=== PATIENT | female | born 1965 | race Caucasian/White ===

== ENCOUNTER → 2017-10-04 | Day surgery (SDC) | payer OTHER ==
[2017-10-02 13:26] LABS: BASOPHILS # (AUTO) 0.1 (0.0-0.1); EOSINOPHILS % 0.4 % (0.0-6.0); HEMATOCRIT 44.1 % (34.2-44.1); HEMOGLOBIN 14.8 g/dL (12.0-16.0); LYMPHOCYTES # (AUTO) 1.4 (1.0-3.2); LYMPHOCYTES % 26.7 % (18.0-39.1); MEAN CORPUSCULAR HEMOGLOBIN 31.2 pg (28-32); MEAN CORPUSCULAR HGB CONC 33.6 g/dL (31-35); MEAN CORPUSCULAR VOLUME 92.8 fL (81-99); MONOCYTES # (AUTO) 0.6 (0.2-0.8); MONOCYTES % 11.8 % (4.4-11.3); NEUTROPHILS # (AUTO) 3.1 (2.1-6.9); NEUTROPHILS % 59.9 % (38.7-80.0); PLATELET COUNT 241 x10e3/uL (140-360); RED BLOOD COUNT 4.75 x10e6/uL (3.6-5.1); RED CELL DISTRIBUTION WIDTH 13.8 % (11.7-14.4)
[~2017-10-04] MED LIST: ALENDRONATE SOD70 MG PO; AMITRIPTYLINE H25 MG PO; BUSPIRONE HCL5 MG PO; DOXAZOSIN MESYLA2 MG PO; FENTANYL CITRATE/PF 100MCG/2 ML INJ ONE; GABAPENTIN400 MG PO; HYDROCODONE-AP1 EAC1 PO; IMIPRAMINE HCL50 M1 PO; LIDOCAINE HCL 2% LOCAL INJ 5 ML SDV VIAL INJ ONE; MAGNESIUM OXID400 MG PO; MELOXICAM7.5 MG PO; MIDAZOLAM HCL 2 MG/2 ML VIAL ONE; PHENYLEPHRINE HCL 1% 10 MG/ML VIAL ONE; PROPOFOL IV EMULSION 10 MG/ML 20 ML VIAL ONE; TIZANIDINE HCL4 M1 PO; TOPIRAMATE100 MG PO; TRAZODONE HCL50 MG PO; Z DILTIAZEM PO; Z.0.ALPRAZOLAM1 MG PO; Z.0.CARISOPRODOL350 PO; Z.0.DIGOXIN250 MCG PO; Z.0.FOLIC ACID1 MG PO; Z.0.FUROSEMIDE40 MG PO; Z.0.HYDROXYCHLOROQ20 PO; Z.0.KLOR-CON20 MEQ PO; Z.0.LEVOTHYROXINE125 PO; Z.0.METOPROLOL TART2 PO; Z.0.NEXIUM40 MG PO; [UNRECOGNIZED DRUG - OTHER] PO; [UNRECOGNIZED DRUG - OTHER] PO
[2017-10-04 08:07] LABS: INR 0.87; PARTIAL THROMBOPLASTIN TIME 28.5 seconds (23.8-35.5); PROTHROMBIN TIME 12.3 seconds (11.9-14.5)
== END | disposition home or self-care (01) ==
LOC: OR 07:24
PROVIDERS: ATTEND Internal Medicine Gastroenterology
DX: Z12.11 Encounter for screening for malignant neoplasm of colon (principal); K57.30 Diverticulosis of large intestine without perforation or abscess without bleeding; K64.4 Residual hemorrhoidal skin tags; Z98.0 Intestinal bypass and anastomosis status; J44.9 Chronic obstructive pulmonary disease, unspecified; I48.91 Unspecified atrial fibrillation; I48.92 Unspecified atrial flutter; I44.30 Unspecified atrioventricular block; E03.9 Hypothyroidism, unspecified; M32.9 Systemic lupus erythematosus, unspecified; K21.9 Gastro-esophageal reflux disease without esophagitis; B19.10 Unspecified viral hepatitis B without hepatic coma; I50.9 Heart failure, unspecified; F31.9 Bipolar disorder, unspecified; F41.9 Anxiety disorder, unspecified; F17.210 Nicotine dependence, cigarettes, uncomplicated; Z01.810 Encounter for preprocedural cardiovascular examination; Z01.812 Encounter for preprocedural laboratory examination; Z79.01 Long term (current) use of anticoagulants; Z87.01 Personal history of pneumonia (recurrent)
CPT/HCPCS: 36415 ×2; 45378; 85025; 85610; 85730; 93005; J2001; J2250; J2370

== ENCOUNTER 2018-09-19 13:20 | Emergency (ER) | payer OTHER ==
[~2018-09-19] VITALS: Ht 167.6 cm; Wt 45.4 kg
[~2018-09-19 13:20] MED LIST changes: -FENTANYL CITRATE/PF 100MCG/2 ML INJ ONE; -LIDOCAINE HCL 2% LOCAL INJ 5 ML SDV VIAL INJ ONE; -MIDAZOLAM HCL 2 MG/2 ML VIAL ONE; -PHENYLEPHRINE HCL 1% 10 MG/ML VIAL ONE; -PROPOFOL IV EMULSION 10 MG/ML 20 ML VIAL ONE
--- OUTSIDE RECORDS SUMMARY | 2018-09-19 13:24 | XMS REPORT ---
Author Author Naty Cruz Organization [employer] Address Unknown Phone Unavailable Care Team Providers Care Janitorial Services Supervisor Name Role Phone Naty Cruz CP Unavailable Allergies No Known Allergies Problems No Known Problems Medications Medication Code System Code Instructions Start Date End Date Status Dosage Hydroxychloroquine Sulfate [facility] 75599453846 200 MG Orally Twice a day Active 1 tablet with food or milk Results No Known Results Summary Purpose [employer]Works Submission
--- OUTSIDE RECORDS SUMMARY | 2018-09-19 13:24 | XMS REPORT ---
Author Author Juan Shahid Organization [employer] Address Unknown Phone Unavailable Care Team Providers Care Account Receivable Clerk Name Role Phone Juan Shahid CP Unavailable Allergies No Known Allergies Problems No Known Problems Medications Medication Code System Code Instructions Start Date End Date Status Dosage Alendronate Sodium [facility] 67532319502 70 MG Orally Once a day May 25, 2017 Active TAKE 1 TABLET EVERY WEEK Results No Known Results Summary Purpose [employer] Submission
--- OUTSIDE RECORDS SUMMARY | 2018-09-19 13:24 | XMS REPORT ---
Author Author Juan Shahid [facility] e[employer] Address Unknown Phone Unavailable Care Team Providers Care Cotton Opener Name Role Phone Juan Shahid CP Unavailable Encounters Encounter Location Date [place] and [place] clarification Juan Shahid MD Jun 25, 2014 [place]-- [place] Juan Shahid MD Jul 01, 2014 Appointment Time Juan Shahid MD Jul 23, 2014 DEXA Juan Shahid MD Jul 23, 2014 crit labs Juan Shahid MD January 15, 2014 6m f/u Juan Shahid MD January 14, 2014 Follow up Juan Shahid MD Jun 18, 2014 RX request-- [place] Juan Shahid MD Jul 30, 2014 Problems Problem Type Condition ICD-9 Code Onset Dates Condition Status Problem Lupus 710.0 Active Social History Social History Element Qualifiers Date Reported Alcohol Screening: . Points: 0, Interpretation: Negative Jul 28, 2014 Tobacco Use: . Are you a:: current smoker , How often do you smoke cigarettes?: every day, How many cigarettes a day do you smoke?: 31 or more Jul 28, 2014 Marital Status: . Jul 28, 2014 Caffeine: yes. frequency: 3 cups Jul 28, 2014 Exercise: no. Jul 28, 2014 Alcohol: no. Jul 28, 2014 Occupation: unemployed. Jul 28, 2014 Summary Purpose [employer]Works Submission
--- OUTSIDE RECORDS SUMMARY | 2018-09-19 13:24 | XMS REPORT ---
Author Author Juan Shahid Organization [employer] Address Unknown Phone Unavailable Care Team Providers Care Household Appliances Service Technician Name Role Phone Juan Shahid CP Unavailable Allergies No Known Allergies Problems No Known Problems Medications Medication Code System Code Instructions Start Date End Date Status Dosage Prednisone Taper [facility] 3322-3540-58 5mg PO q am with food December 08, 2016 December 24, 2016 Active 3 tablets for 5 days, 2 tablets for 5 days and then 1 tablet for 5 days Results No Known Results Summary Purpose [employer]Works Submission
--- OUTSIDE RECORDS SUMMARY | 2018-09-19 13:24 | XMS REPORT ---
Author Author Juan Shahid Organization [employer] Address Unknown Phone Unavailable Care Team Providers Care It Security Consultant Name Role Phone Juan Shahid CP Unavailable Allergies No Known Allergies Problems No Known Problems Medications No Known Medications Results No Known Results Summary Purpose [employer] Submission
--- OUTSIDE RECORDS SUMMARY | 2018-09-19 13:24 | XMS REPORT ---
Author Author Juan Shahid [facility] e[employer] Address Unknown Phone Unavailable Care Team Providers Care Business Intern Name Role Phone Juan Shahid Unavailable Encounters Encounter Location Date crit labs Juan Shahid MD January 15, 2014 Problems Problem Type Condition ICD-9 Code Onset Dates Condition Status Problem Lupus 710.0 Active Social History Social History Element Qualifiers Date Reported Alcohol Screening: . Points: 0, Interpretation: Negative January 14, 2014 Tobacco Use: . Are you a:: current smoker , How often do you smoke cigarettes?: every day, How many cigarettes a day do you smoke?: 31 or more January 14, 2014 Marital Status: . January 14, 2014 Caffeine: yes. frequency: 3 cups January 14, 2014 Exercise: no. January 14, 2014 Alcohol: no. January 14, 2014 Occupation: unemployed. January 14, 2014 Summary Purpose eClinicalWorks Submission
--- OUTSIDE RECORDS SUMMARY | 2018-09-19 13:24 | XMS REPORT ---
Author Author Juan Shahid [employer] Address Unknown Phone Unavailable Care Team Providers Care Teacher Assistant Name Role Phone Juan Shahid CP Unavailable Encounters Encounter Location Date [place] and Plaquenil clarification Juan Shahid MD Jun 25, 2014 [place]-- [place] Shahid MD Jul 01, 2014 Appointment Time Juan Shahid MD Jul 23, 2014 DEXA Juan Shahid MD Jul 23, 2014 crit labs Juan Shahid MD January 15, 2014 6m f/u Juan Shahid MD January 14, 2014 Follow up Juan Shahid MD Jun 18, 2014 f/u Juan Shahid MD Jul 28, 2014 RX request-- [place] Juan Shahid MD Jul 30, 2014 [place] Juan Shahid MD Aug 03, 2014 Unknown Juan Shahid MD April 01, 2015 3M F/U Juan Shahid MD March 26, 2015 DEXA Juan Shahid MD March 20, 2015 labs Juan Shahid MD March 27, 2015 3M F/U Juan Shahid MD Oct 28, 2014 NoShow Juan Shahid MD January 28, 2015 RX Request-- [place] Juan Shahid MD Oct 29, 2014 Skelaxin to much Juan Shahid MD Oct 29, 2014 Unknown Juan Shahid MD April 07, 2015 Problems Problem Type Condition ICD-9 Code Onset Dates Condition Status Problem Lupus 710.0 Active Problem Osteoporosis, postmenopausal 733.01 Active Medications Medication Code System Code Instructions Start Date End Date Status Dosage Ciprofloxacin HCl [facility] [address]-81 500 MG Orally Twice a day April 07, 2015 April 07, 2015 Inactive 1 tablet [facility] [address]-37 800-160 MG Orally Once a day April 01, 2015 Apr 11, 2015 Inactive 1 tablet Keflex [facility] [address]-43 500 MG Orally Twice a day April 07, 2015 Apr 17, 2015 Active 1 capsule Social History Social History Element Qualifiers Date Reported Alcohol Screening: . Points: 0, Interpretation: Negative March 26, 2015 Tobacco Use: . Are you a:: current smoker , How often do you smoke cigarettes?: every day, How many cigarettes a day do you smoke?: 31 or more March 26, 2015 Marital Status: . March 26, 2015 Caffeine: yes. frequency: 3 cups March 26, 2015 Exercise: no. March 26, 2015 Alcohol: no. March 26, 2015 Occupation: unemployed. March 26, 2015 Summary Purpose eClinicalWorks Submission
--- OUTSIDE RECORDS SUMMARY | 2018-09-19 13:24 | XMS REPORT ---
Author Author Elvi Kimball [facility] [place] eClinical[employer] Address Unknown Phone Unavailable Care Team Providers Care Entry Level Account Executive Name Role Phone Elvi Kimball CP Unavailable Allergies, Adverse Reactions, Alerts Substance Reaction Event Type Plaquenil Not helping the pt Drug Allergy Imuran Not helping the pt Drug Allergy [facility] Itching for at least a week Non Drug Allergy Encounters Encounter Location Date crit labs Juan Shahid MD January 15, 2014 6m f/u Juan Shahid MD January 14, 2014 Problems Problem Type Condition ICD-9 Code Onset Dates Condition Status Assessment Lupus 710.0 Active Problem Lupus 710.0 Active Medications Medication Code System Code Instructions Start Date End Date Status Dosage Digoxin [facility] [address]-59 250 mcg Injection qd Active 1 tablet Soma [facility] [address]-96 350 mg Orally qd Active 2 tablets Promethazine HCl [facility] [address]-52 25 MG Orally prn Active Unknown Hydrocodone-Acetaminophen [facility] [address]-26 10-325 MG Orally three times a day Active 1 tablet as needed for pain Vitamin B12 [facility] [address]66-[address]84 Orally Active Unknown Calcium 600 [facility] [address]204 600 MG Orally once a day Active 1 tablet Xopenex [facility] [address]-68 0.63 MG/3ML Inhalation twice a day Active 3 ml Cartia XT [facility] [address]-02 300 MG Orally Once a day Active 1 capsule Warfarin Sodium [facility] [address]-93 5MG Orally Once a day Active 1 tablet Plaquenil [facility] [address]-66 200 MG Orally qam qpm Active 1 tablet with food or milk Potassium [facility] [address]-94 200 mcg Orally bid Active 1 tablet Clonazepam [facility] [address]-19 0.5 MG Orally three times a day Active 1 tablet at bedtime Hair/Skin/Nails [facility] 46821-64817 Orally Oct 19, 2013 Active Unknown Haloperidol [facility] [address]-29 1 MG Orally qam qpm Active 1 tablet BuPROPion HCl (SR) [facility] [address]-71 150 MG Orally Twice a day Active 1 tablet Nexium [facility] [address]-02 40 MG Orally qd Active 1 tablet Levothyroxine Sodium [facility] [address]-88 125 MCG Orally Once a day Active 1 tablet every morning on an empty stomach Oxybutynin Chloride [facility] [address]-49 5 MG Orally twice a day Active Unknown Trazodone & Diet Manage Prod Unknown 0 100 MG Orally once a day Active 1 tablet Alprazolam [facility] [address]-39 1 mg Orally tid Active 1 tablet Furosemide [facility] [address]-13 40 mg Orally qd Active 1 tablet Spiriva HandiHaler [facility] [address]-46 18 MCG Inhalation twice a day Active 1 capsule Social History Social History [...] 14, 2014 Occupation: unemployed. January 14, 2014 Vital Signs Date/Time: January 14, 2014 Blood Pressure Systolic 120 mm Hg Temperature 95.2 F Cardiac Monitoring Heart Rate 68 /min Blood Pressure Diastolic 70 mm Hg Immunizations Vaccine Administration Date Toradol January 14, 2014 Depomedrol January 14, 2014 Summary Purpose eClinicalWorks Submission
--- OUTSIDE RECORDS SUMMARY | 2018-09-19 13:24 | XMS REPORT ---
Author Author Juan Shahid [facility] eClinicalWorks Address Unknown Phone Unavailable Care Team Providers Care Construction Producer Name Role Phone Juan Shahid CP Unavailable Encounters Encounter Location Date [place] and Plaquenil clarification Juan Shahid MD Jun 25, 2014 [place]-- [place] Juan Shahid MD Jul 01, 2014 Appointment [...]
--- OUTSIDE RECORDS SUMMARY | 2018-09-19 13:24 | XMS REPORT | Continuity of Care Document ---
Author Author [facility] Interface Address Unknown Phone Unavailable Problems Problem Status Onset Date Classification Date Reported Comments Source G89.4 - CHRONIC PAIN SYNDROME Active 08/14/2015 OPID [place] Lupus Active Problem 07/02/2016 Galileo Zuñigaer Osteoporosis, postmenopausal Active Problem 07/02/2016 Galileo Shahid Long-term use of other medications - High Risk Active Diagnosis 04/08/2015 Galileo Shahid Unspecified drug dependence Active Problem 06/08/2017 Galileo Shahid Lumbosacral spondylosis without myelopathy Active Problem 06/08/2017 Galileo Shahid Headache Active Problem 06/08/2017 Galileo Shahid Lumbar radiculopathy Active Problem 08/11/2017 Galileo Zuñigaer Chronic pain syndrome Active Problem 06/08/2017 Galileo Zuñigaer Postlaminectomy syndrome, lumbar region Active Problem 06/08/2017 Galileo Zuñigaer Spasm of muscle Active Problem 06/08/2017 Galileo Zuñigaer Chronic pain syndrome Active Diagnosis 07/26/2017 Galileo Shahid Postlaminectomy syndrome, not elsewhere classified Active Diagnosis 07/26/2017 Galileo Zuñigaer Spondylosis without myelopathy or radiculopathy, lumbosacral region Active Diagnosis 07/26/2017 Galileo Shahid Encounter for long-term use of other medications Active Diagnosis 07/26/2017 Galileo Shahid Muscle spasm Active Diagnosis 07/26/2017 Galileo Shahid Medications Medication Details Route Status Patient Instructions Ordering Provider Order Date Source Alendronate Sodium TAKE 1 TABLET EVERY WEEK Orally Active 70 MG Orally Once a day [facility] 09/06/2017 Galileo Shahid Alendronate Sodium TAKE 1 TABLET EVERY WEEK Orally Active 70 MG Orally Once a day [facility] 05/25/2017 Galileo Shahid Tizanidine HCl take 1 tablet by mouth every 8 hours as needed Orally Active 4 MG Orally TID [facility] 05/23/2017 Galileo Shahid Meloxicam 1 tablet Orally Active 15 MG Orally Once a day [facility] 05/23/2017 Galileo Shahid Meloxicam 1 tablet Orally Active 15 MG Orally Once a day [facility] 05/18/2017 Galileo Shahid Clonazepam 1 tablet on the tongue and allow to dissolve Orally Active 0.5 MG Orally once a day [facility] 04/28/2017 Galileo Shahid PrednisoLONE take 3 , 2, 1 NA Active 5 mg 5 days, 3 days [facility] 01/23/2017 Galileo Shahid Lini Mist Analgesic as directed Externally Active Externally [facility] 01/23/2017 Galileo Shahid Oxybutynin Chloride 1 tablet Orally Active 5 MG Orally Twice a day [facility] 01/23/2017 Galileo Shahid Alprazolam 1 tablet Orally Active 1 MG Orally Twice a day [facility] 01/23/2017 Galileo Shahid Meloxicam 1 tablet Orally Active 15 MG Orally Once a day [facility] 12/27/2016 Galileo Shahid Prednisone Taper 3 tablets for 5 days, 2 tablets for 5 days and then 1 tablet for 5 days PO Active 5mg PO q am with food [facility] 12/08/2016 Galileo Shahid Alendronate Sodium 1 tablet Orally Active 70 MG Orally Once a day [facility] 06/28/2016 Galileo Shahid Prednisone Taper 3 tablets for 5 days, 2 tablets for 5 days and then 1 tablet for 5 days PO Active 5mg PO q am with food [facility] 01/26/2016 Galileo Shahid Plaquenil 1 tablet with food or milk Orally Active 200 MG Orally Twice a day [facility] 07/26/2015 Galileo Shahid Ciprofloxacin HCl 1 tablet Orally Inactive 500 MG Orally Twice a day [facility] 04/07/2015 Galileo Shahid Keflex 1 capsule Orally Active 500 MG Orally Twice a day [facility] 04/07/2015 Galileo Shahid Bactrim DS 1 tablet Orally No Longer Active 800-160 MG Orally Once a day [facility] 04/01/2015 Galileo Shahid Alendronate Sodium 1 tablet Orally Active 70 MG Orally every week [facility] 03/26/2015 Galileo Shahid Soma 2 tablets Orally Active 350 MG Orally qd [facility] 10/30/2014 Galileo Shahid Skelaxin 1 tablet Orally Active 800 MG Orally Three times a day [facility] 09/29/2014 Galileo Shahid Hydrocodone-Acetaminophen 1 tablet as needed Orally Active 10- 325 MG Orally every 6 hrs [facility] 08/04/2014 Galileo Shahid Hydrocodone-Acetaminophen 1 tablet as needed for pain Orally Active 10-325 MG Orally every 6 hours [facility] 07/31/2014 Galileo Shahid Hair/Skin/Nails Unknown Orally Active Orally [facility] 10/19/2013 Galileo Shahid Hydroxychloroquine Sulfate 1 tablet with food or milk Orally Active 200 MG Orally Twice a day Nancy Galileo Shahid Digoxin 1 tablet Injection Active 250 mcg Injection qd Galileo Shahid Soma 2 tablets Orally Active 350 MG Orally qd Mathieu Shahid Promethazine HCl as directed Orally Active 25 MG Orally [facility] Galileo Shahid Hydrocodone-Acetaminophen 1 tablet as needed for pain Orally Active 10-325 MG Orally three times a day Nathan Shahid Vitamin B12 Unknown Orally Active Orally Nancy Galileo Shahid Calcium 600 1 tablet Orally Active 600 MG Orally once a day Mathieu Shahid Xopenex 3 ml Inhalation Active 0.63 MG/3ML Inhalation twice a day Nancy Galileo Shahid Cartia XT 1 capsule Orally Active 300 MG Orally Once a day [facility] Galileo Shahid Warfarin Sodium 1 tablet Orally Active 5MG Orally Once a day Nancy Galileo Shahid Plaquenil 1 tablet with food or milk Orally Active 200 MG Orally Twice a day Mathieu Galileo Shahid Potassium 1 tablet Orally Active 200 mcg Orally bid Nancy Galileo Shahid Clonazepam 1 tablet at bedtime Orally Active 0.5 MG Orally three times a day Nancy Galileo Shahid Haloperidol 1 tablet Orally Active 1 MG Orally Once a day [facility] Galileo Shahid BuPROPion HCl (SR) 1 tablet Orally Active 150 MG Orally Twice a day Nancy Galileo Shahid Nexium 1 capsule Orally Active 40 MG Orally Once a day [facility] Galileo Shahid Levothyroxine Sodium 1 tablet every morning on an empty stomach Orally Active 100MCG Orally Once a day Nancy Galileo Shahid Oxybutynin Chloride Unknown Orally Active 5 MG Orally twice a day Mathieu Shahid Trazodone & Diet Manage Prod 1 tablet Orally Active 100 MG Orally once a day Nancy Galileo Shahid Alprazolam 1 tablet Orally Active 1 mg Orally tid Nancy Galileo Shahid Furosemide 1 tablet Orally Active 40 MG Orally Once a day John Galileo Shahid Spiriva HandiHaler 1 capsule Inhalation Active 18 MCG Inhalation twice a day Nancy Galileo Shahid Amitriptyline HCl 1 tablet at bedtime Orally Active 25 MG Orally Once a day [facility] Galileo Shahid Hydrocodone-Acetaminophen 1 tablet as needed Orally Active 10- 325 MG Orally every 6 hrs [facility] Galileo Shahid Alendronate Sodium TAKE 1 TABLET EVERY WEEK Orally Active 70 MG Orally Once a day Zehra Shahid Vitamin D (Ergocalciferol) 1 capsule Orally Active 08745 UNIT Orally Once a week Mathieu Shahid Plaquenil 1 tablet with food or milk Orally Active 200 MG Orally Twice a day Mathieu Shahid Amitriptyline HCl 1 tablet Orally Active 50 MG Orally Once a day [facility] Galileo Shahid Topamax bid orally Active 50 orally twice a day [facility] Galileo Shahid Hydroxychloroquine Sulfate as directed NA Active [facility] Galileo Shahid Vitamin B-12 1 tablet Orally Active 100 MCG Orally Once a day [facility] Galileo Shahid Cafergot 1 tab Orally Active 1-100 MG Orally BID PRN Headache [facility] Galileo Shahid Mobic TAKE 1 TABLET BY MOUTH ONCE A DAY NA Active 15 MG [facility] Galileo Shahid Trazodone HCl 1 tablet at bedtime as needed Orally Active 150 MG Orally Once a day [facility] Galileo Shahid Kemah 1 tablet as needed Orally Active 10-325 MG Orally Four times a day [facility] Galileo Shahid Warfarin Sodium 1 tablet Orally Active 3.5 mg Orally Once a day [facility] Galileo Shahid Digoxin 1 tablet Orally Active 250 MCG Orally Once a day [facility] Galileo Shahid MAGnesium-Oxide TAKE 1 TABLET BY MOUTH EVERY DAY NA Active 400 (241.3 Mg) MG [facility] Galileo Shahid Omeprazole 1 capsule Orally Active 40 MG Orally Once a day [facility] Galileo Shahid BusPIRone HCl 1 tablet Orally Active 10 MG Orally Twice a day [facility] Galileo Shahid Alendronate Sodium 1 tablet Orally Active 70 MG Orally [facility] Galileo Shahid Tizanidine HCl take 1 tablet by mouth every 8 hours as needed Orally Active 4 MG Orally TID [facility] Galileo Shahid Folic Acid 1 tablet Orally Active 1 MG Orally Once a day [facility] Galileo Shahid Levothyroxin 1 PO Active 125 MCG PO QD [facility] Galileo Shahid Meloxicam 1 tablet Orally Active 15 MG Orally Once a day [facility] Galileo Shahid Clonazepam 1 tablet on the tongue and allow to dissolve Orally Active 0.5 MG Orally once a day [facility] Galileo Shahid Amitriptyline HCl 1 tablet Orally Active 50 MG Orally Once a day [facility] Galileo Shahid Tizanidine HCl take 1 tablet by mouth every 8 hours as needed Orally Active 5 MG Orally TID [facility] Galileo Shahid Warfarin Sodium 1 tablet Orally Active 3.5 mg Orally Once a day [facility] Galileo Shahid Trazodone HCl 1 tablet at bedtime as needed Orally Active 150 MG Orally Once a day [facility] Galileo Shahid Folic Acid 1 tablet Orally Active 1 MG Orally Once a day [facility] Galileo Shahid Meloxicam 1 tablet Orally Active 15 MG Orally Once a day [facility] Galileo Shahid Digoxin 1 tablet Orally Active 250 MCG Orally Once a day [facility] Galileo Shahid Furosemide 2 tablets Orally Active 40 MG Orally Once a day [facility] Galileo Shahid Gabapentin 1 capsule Orally Active 400 MG Orally Three times a day [facility] Galileo Shahid Alendronate Sodium 1 tablet Orally Active 70 MG Orally [facility] Galileo Shahid Hydroxychloroquine Sulfate as directed NA Active [facility] Galileo Shahid Cartia XT 1 capsule Orally Active 300 MG Orally Once a day [facility] Galileo Shahid Nexium 1 capsule Orally Active 40 MG Orally Once a day [facility] Galileo Shahid Omeprazole 1 capsule Orally Active 40 MG Orally Once a day [facility] Galileo Shahid BusPIRone HCl 1 tablet Orally Active 10 MG Orally Twice a day [facility] Galileo Shahid Haloperidol 1 tablet Orally Active 1 MG Orally twice a day [facility] Galileo Shahid Kemah 1 tablet as needed Orally Active 10-325 MG Orally Four times a day [facility] Galileo Shahid Vitamin B-12 1 tablet Orally Active 100 MCG Orally Once a day [facility] Galileo Shahid Cafergot 1 tab Orally Active 1-100 MG Orally BID PRN Headache [facility] Galileo Shahid Levothyroxin 1 PO Active 125 MCG PO QD [facility] Galileo Shahid PrednisoLONE take 3 , 2, 1 NA Active 5 mg 5 days, 3 days [facility] Galileo Shahid Topamax bid orally Active 100 orally twice a day [facility] Galileo Shahid Oxybutynin Chloride 1 tablet Orally Active 5 MG Orally Twice a day [facility] Galileo Shahid Lini Mist Analgesic as directed Externally Active Externally [facility] Norrishaydee Zuñigaer Alprazolam 1 tablet Orally Active 1 MG Orally Twice a day Johnlinn Gurrola Shahid Gabapentin 1 capsule Orally Active 400 MG Orally Three times a day Johnkristi Shahid Allergies, Adverse Reactions, Alerts Substance Category Reaction Severity Reaction type Status Date Reported Comments Source Plaquenil Adverse Reaction Not helping the pt Adverse Reaction Active 03/26/2015 Galileo Shahid Imuran Adverse Reaction Not helping the pt Adverse Reaction Active 03/26/2015 Galileo Shahid HGS Infusion for Research Adverse Reaction Itching for at least a week Adverse Reaction Active 03/26/2015 Galileo Shahid [place].DToreyA. Adverse Reaction Info Not Available Adverse Reaction Active 07/21/2017 Galileo Shahid Immunizations Immunization Date Given Site Status Last Updated Comments Source Depomedrol 10/28/2014 completed Galileo Shahid Depomedrol 07/28/2014 completed Galileo Shahid Toradol 01/14/2014 completed Galileo Shahid Depomedrol 01/14/2014 rachel Shahid Results Order Name Results Value Reference Range Date Interpretation Comments Source Spine lumbar w/wo contrast MRI Spine lumbar w/wo contrast MRI EXAM: MRI LUMBAR SPINE WITHOUT CONTRAST DATE: Aug 25, 2015 02:01:00 PM . CLINICAL INDICATION: chronic pain syndrome. TECHNIQUE: Multiplanar, multisequence MRI lumbar spine without IV contrast COMPARISON: Lumbar spine CT of April 23, 2007 FINDINGS: The lumbar vertebral bodies have normal height, shape, and alignment. There is no worrisome marrow signal abnormality. The conus terminates normally at L1-L2. The paravertebral soft tissues are within normal limits. Disc spaces, spinal canal, and neural foramina: T12-L1. Intervertebral disc height and signal are maintained. Posterior elements are normal. There is no stenosis. L1-L2. Intervertebral disc height and signal are maintained. Posterior elements are normal. There is no stenosis. L2-L3. Mild loss of intervertebral disc height and signal small diffuse disc bulge. There is bilateral facet hypertrophy ligamentous redundancy. Central canal measures 9 mm. Lateral recesses pain. Neural foramina are patent. L3-L4. Intervertebral disc height and signal are maintained. There is bilateral facet hypertrophy. There is no stenosis. L4-L5. Loss of intervertebral disc height and signal with small disc osteophyte complex and central radial annular fissuring. Status post decompressive laminectomies bilaterally. Central canal and lateral recesses are patent. There is mild to moderate stenosis of left neural foramina with disc osteophyte complex contacting, but not displacing or compressing the left L4 nerve root. L5-S1. Intervertebral disc height and signal are maintained. Status post posterior decompression. There is no stenosis. IMPRESSION: 1. No significant central canal stenosis. 2. Moderate left L4-L5 neural foramen stenosis with disc osteophyte complex contacting the left L4 nerve root. 3. Status post posterior decompression at L4-L5 and L5-S1 without obligation identified 4. No significant change in findings compare with the lumbar spine CT of April 23, 2007 08/25/2015 - - Read by: Bradford Leija MD Dictated Date/time: 08/25/15 15:09 Electronically Signed by: Bradford Leija MD 08/25/15 15:57 FINAL REPORT ISIDORO [place] Vital Signs Vital Sign Value Date Comments Source Weight 120.9 07/21/2017 Galileo Shahid Height 64 07/21/2017 Galileo Shahid Temperature Oral (F) 97.6 F 07/21/2017 Galileo Shahid Heart Rate 88 07/21/2017 Galileo Shahid Diastolic (mm Hg) 60 07/21/2017 Galileo Shahid Systolic (mm Hg) 142 07/21/2017 Galileo Shahid Weight 127 05/22/2017 Galileo Shahid Height 64 05/22/2017 Galileo Shahid Temperature Oral (F) 96.1 F 05/22/2017 Galileo Shahid Heart Rate 64 05/22/2017 Galileo Shahid Diastolic (mm Hg) 60 05/22/2017 Galileo Shahid Systolic (mm Hg) 132 05/22/2017 Galileo Shahid Weight 133.4 02/22/2017 Galileo Shahid Height 64 02/22/2017 Galileo Shahid Temperature Oral (F) 98.1 F 02/22/2017 Galileo Shahid Heart Rate 92 02/22/2017 Galileo Shahid Diastolic (mm Hg) 80 02/22/2017 Galileo Shahid Systolic (mm Hg) 144 02/22/2017 Galileo Shahid Weight 142 01/23/2017 Galileo Shahid Height 64 01/23/2017 Galileo Shahid Temperature Oral (F) 96.3 F 01/23/2017 Galileo Shahid Heart Rate 92 01/23/2017 Galileo Shahid Diastolic (mm Hg) 80 01/23/2017 Galileo Shahid Systolic (mm Hg) 142 01/23/2017 Galileo Shahid Weight 141 12/26/2016 Galileo Shahid Height 64 12/26/2016 Galileo Shahid Temperature Oral (F) 96.7 F 12/26/2016 Galileo Shahid Heart Rate 94 12/26/2016 Galileo Shahid Diastolic (mm Hg) 62 12/26/2016 Galileo Shahid Systolic (mm Hg) 110 12/26/2016 Galileo Shahid Weight 142.1 09/28/2016 Galileo Shahid Height 64 09/28/2016 Galileo Shahid Temperature Oral (F) 96.8 F 09/28/2016 Galileo Shahid Diastolic (mm Hg) 60 09/28/2016 Galileo Shahid Systolic (mm Hg) 106 09/28/2016 Galileo Shahid Weight 138 03/26/2015 Galileo Shahid Height 64 03/26/2015 Galileo Shahid Temperature Oral (F) 98.2 F 03/26/2015 Galileo Shahid Heart Rate 66 03/26/2015 Galileo Shahid Diastolic (mm Hg) 62 03/26/2015 Galileo Shahid Systolic (mm Hg) 108 03/26/2015 Galileo Shahid Weight 133 10/28/2014 Galileo Shahid Height 64 10/28/2014 Galileo Shahid Temperature Oral (F) 96.8 F 10/28/2014 Galileo Shahid Heart Rate 66 10/28/2014 Galileo Shahid Diastolic (mm Hg) 80 10/28/2014 Galileo Shahid Systolic (mm Hg) 138 10/28/2014 Galileo Shahid Weight 135 07/28/2014 Galileo Shahid Height 64 07/28/2014 Galileo Shahid Temperature Oral (F) 97.6 F 07/28/2014 Galileo Shahid Heart Rate 80 07/28/2014 Galileo Shahid Diastolic (mm Hg) 74 07/28/2014 Galileo Shahid Systolic (mm Hg) 120 07/28/2014 Galileo Shahid Systolic (mm Hg) 120 01/14/2014 Galileo Shahid Temperature Oral (F) 95.2 F 01/14/2014 Galileo Shahid Heart Rate 68 01/14/2014 Galileo Shahid Diastolic (mm Hg) 70 01/14/2014 Galileo Shahid Encounters Location Location Details Encounter Type Encounter Number Reason For Visit Attending Provider ADM Date DC Date Status Source Juan Shahid MD 6m f/u [id number] 01/14/2014 01/14/2014 Galileo Shahid MD 6m f/u [id number] 01/14/2014 01/14/2014 Galileo Shahid MD 6m f/u [id number] 01/14/2014 01/14/2014 Galileo Shahid MD 6m f/u [id number] 01/14/2014 01/14/2014 Galileo Shahid MD 6m f/u [id number] 01/14/2014 01/14/2014 Galileo Shahid MD 6m f/u [id number] 01/14/2014 01/14/2014 Galileo Shahid MD 6m f/u [id number] 01/14/2014 01/14/2014 Galileo Shahid MD 6m f/u [id number] 01/14/2014 01/14/2014 Galileo Shahid MD 6m f/u [id number] 01/14/2014 01/14/2014 Galileo Shahid MD 6m f/u [id number] 01/14/2014 01/14/2014 Galileo Shahid MD 6m f/u [id number] 01/14/2014 01/14/2014 Galileo Shahid MD 6m f/u [id number] 01/14/2014 01/14/2014 Galileo Shahid MD 6m f/u [id number] 01/14/2014 01/14/2014 Galileo Shahid MD 6m f/u [id number] 01/14/2014 01/14/2014 Galileo Shahid MD 6m f/u [id number] 01/14/2014 01/14/2014 Galileo Shahid MD 6m f/u [id number] 01/14/2014 01/14/2014 Galileo Shahid MD 6m f/u [id number] 01/14/2014 01/14/2014 Galileo Shahid MD 6m f/u [id number] 01/14/2014 01/14/2014 Galileo Shahid MD 6m f/u [id number] 01/14/2014 01/14/2014 Galileo Shahid MD crit labs [id number] 01/15/2014 01/15/2014 Galileo Shahid MD crit labs [id number] 01/15/2014 01/15/2014 Galileo Shahid MD crit labs [id number] 01/15/2014 01/15/2014 Galileo Shahid MD crit labs [id number] 01/15/2014 01/15/2014 Galileo Shahid MD crit labs [id number] 01/15/2014 01/15/2014 Galileo Shahid MD crit labs [id number] 01/15/2014 01/15/2014 Galileo Shahid MD crit labs [id number] 01/15/2014 01/15/2014 Galileo Shahid MD crit labs [id number] 01/15/2014 01/15/2014 Galileo Shahid MD crit labs [id number] 01/15/2014 01/15/2014 Galileo Shahid MD crit labs [id number] 01/15/2014 01/15/2014 Galileo Shahid MD crit labs [id number] 01/15/2014 01/15/2014 Galileo Shahid MD crit labs [id number] 01/15/2014 01/15/2014 Galileo Shahid MD crit labs [id number] 01/15/2014 01/15/2014 Galileo Shahid MD crit labs [id number] 01/15/2014 01/15/2014 Galileo Shahid MD crit labs [id number] 01/15/2014 01/15/2014 Galileo Shahid MD crit labs [id number] 01/15/2014 01/15/2014 Galileo Shahid MD crit labs [id number] 01/15/2014 01/15/2014 Galileo Shahid MD crit labs [id number] 01/15/2014 01/15/2014 Galileo Shahid MD crit labs [id number] 01/15/2014 01/15/2014 Glaileo Shahid MD crit labs [id number] 01/15/2014 01/15/2014 Galileo Shahid MD Follow up [id number] 06/18/2014 06/18/2014 Galileo Shahid MD Follow up [id number] 06/18/2014 06/18/2014 Galileo Shahid MD Follow up [id number] 06/18/2014 06/18/2014 Galileo Shahid MD Follow up [id number] 06/18/2014 06/18/2014 Galileo Shahid MD Follow up [id number] 06/18/2014 06/18/2014 Galileo Shahid MD Follow up [id number] 06/18/2014 06/18/2014 Galileo Shahid MD Follow up [id number] 06/18/2014 06/18/2014 Galileo Shahid MD Follow up [id number] 06/18/2014 06/18/2014 Galileo Shahid MD Follow up [id number] 06/18/2014 06/18/2014 Galileo Shahid MD Follow up [id number] 06/18/2014 06/18/2014 Galileo Shahid MD Follow up [id number] 06/18/2014 06/18/2014 Galileo Shahid MD Follow up [id number] 06/18/2014 06/18/2014 Galileo Shahid MD Follow up [id number] 06/18/2014 06/18/2014 Galileo Shahid MD Follow up [id number] 06/18/2014 06/18/2014 Galileo Shahid MD Follow up [id number] 06/18/2014 06/18/2014 Galileo Shahid MD Follow up [id number] 06/18/2014 06/18/2014 Galileo Shahid MD Follow up [id number] 06/18/2014 06/18/2014 Galileo Shahid MD Follow up [id number] 06/18/2014 06/18/2014 MD Melissa Holden,Soma, and Plaquenil clarification [id number] 06/25/2014 06/25/2014 MD Melissa Holden,Soma, and Plaquenil clarification [id number] 06/25/2014 06/25/2014 MD Melissa Holden,Soma, and Plaquenil clarification [id number] 06/25/2014 06/25/2014 MD Melissa Holden,Soma, and Plaquenil clarification [id number] 06/25/2014 06/25/2014 MD Melissa Holden,Soma, and Plaquenil clarification [id number] 06/25/2014 06/25/2014 MD Melissa Holden,Soma, and Plaquenil clarification [id number] 06/25/2014 06/25/2014 MD eMlissa Holden,Soma, and Plaquenil clarification [id number] 06/25/2014 06/25/2014 MD Melissa Holden,Soma, and Plaquenil clarification [id number] 06/25/2014 06/25/2014 MD Melissa HoldenSoma, and Plaquenil clarification [id number] 06/25/2014 06/25/2014 MD Melissa Holden,Soma, and Plaquenil clarification [id number] 06/25/2014 06/25/2014 MD Melissa Holden,Soma, and Plaquenil clarification [id number] 06/25/2014 06/25/2014 MD Melissa Holden,Soma, and Plaquenil clarification [id number] 06/25/2014 06/25/2014 MD Melissa HoldenSoma, and Plaquenil clarification [id number] 06/25/2014 06/25/2014 MD Melissa HoldenSoma, and Plaquenil clarification [id number] 06/25/2014 06/25/2014 MD Melissa HoldenSoma, and Plaquenil clarification [id number] 06/25/2014 06/25/2014 MD Melissa Holden,Soma, and Plaquenil clarification [id number] 06/25/2014 06/25/2014 MD Melissa Holden,Soma, and Plaquenil clarification [id number] 06/25/2014 06/25/2014 Galileo Shahid MD Triplicate-- [place] 8448oo5v-893v-913q-17o6-33b36645g636 07/01/2014 07/01/2014 Galileo Shahid MD [facility]-- [facility] 921z3932-0j18-07vh-8a36-4bi7k41gs833 07/01/2014 07/01/2014 Galileo Shahid MD [facility]-- [place] f33xk5js-7s0j-14x7-i8uy-i9m739z532xw 07/01/2014 07/01/2014 Galileo Shahid MD Tri[facility]-- [place] 1z95qu32-2976-486j-9802-64c78e8ruphb 07/01/2014 07/01/2014 Galileo Shahid MD [facility]-- [place] e83zk18q-n451-704y-i5t9-23t2j32046tf 07/01/2014 07/01/2014 Galileo Shahid MD Triplicate-- [place] 1t0iy97u-6j0o-3227-2s64-156esg680504 07/01/2014 07/01/2014 Galileo Shahid MD Triplicate-- [place] 79539bdn-4vh3-5s74-b4e5-h67s408324z3 07/01/2014 07/01/2014 Galileo Shahid MD Tri[facility]-- [place] u8qv0h4q-js36-5247-rl9w-jj2538964149 07/01/2014 07/01/2014 Galileo Shahid MD Triplicate-- [place] o8p5n9ix-vkf9-09y6-6eqq-6mi45wghqn1w 07/01/2014 07/01/2014 Galileo Shahid MD Triplicate-- [place] 3a8d0259-1x94-39b9-ej88-638m234b02gd 07/01/2014 07/01/2014 Galileo Shahid MD Triplicate-- [place] v027gb42-66g6-2u5a-q3a1-w739c6605925 07/01/2014 07/01/2014 Galileo Shahid MD Tri[facility]-- [place] 5el8mq5v-82w3-74vx-oan2-b06m22e798qf 07/01/2014 07/01/2014 Galileo Shahid MD Triplicate-- [place] 99y46p09-n3sv-40f2-nmu9-5411m7908855 07/01/2014 07/01/2014 Galileo Shahid MD [facility]-- [place] vmp054g4-ryc5-4e8c-c9au-x90q4djbeb83 07/01/2014 07/01/2014 Galileo Shahid MD Triplicate-- [place] 8867wo8n-2620-138o-2h9o-k5354b9755i3 07/01/2014 07/01/2014 Galileo Shahid MD Tri[facility]-- [place] 295254zr-5w26-727o-6212-894h603lcs19 07/01/2014 07/01/2014 Galileo Shahid MD DEXA w4wzc1fq-joo7-53oo-pmvm-3a35327pu98l 07/23/2014 07/23/2014 Galileo Shahid MD DEXA 7j20jq48-9xs0-720c-jb1s-k03056v8k423 07/23/2014 07/23/2014 Galileo Shahid MD DEXA xfc22660-4867-0130-aw75-4lk5e96302s4 07/23/2014 07/23/2014 Galileo Shahid MD DEXA tp0r05ik-ar9f-7bxy-p883-2249zho268iv 07/23/2014 07/23/2014 Galileo Shahid MD DEXA ax56019w-l930-0meu-fpdb-jd26qh30u978 07/23/2014 07/23/2014 Galileo Shahid MD DEXA 7k44598r-9e2k-149a-a3yi-3554f425m4x1 07/23/2014 07/23/2014 Galileo Shahid MD DEXA [id number]-t0rk-eh0p5l62qc49 07/23/2014 07/23/2014 Galileo Shahid MD DEXA 9514zxa0-9xj0-2537-i85x-60hp4p6257id 07/23/2014 07/23/2014 Galileo Shahid MD DEXA 9700s644-8tiy-04xc-6cim-0gq0484b227d 07/23/2014 07/23/2014 Galileo Shahid MD DEXA c4186juf-822w-5695-9w1u-1w6p6608o4u8 07/23/2014 07/23/2014 Galileo Shahid MD DEXA 703251ig-k0s0-0n67-q45p-w2lmf2244w81 07/23/2014 07/23/2014 Galileo Shahid MD DEXA 7t6h1891-3wsy-77c4-cw5f-and4wf906ky4 07/23/2014 07/23/2014 Galileo Shahid MD DEXA 0gf57e25-66w8-3dgl-kf29-b03h8i40or44 07/23/2014 07/23/2014 Galileo Shahid MD DEXA 21g10nib-zz06-0gn5-k163-7u1609136165 07/23/2014 07/23/2014 Galileo Shahid MD DEXA j99647j5-7f74-1478-3643-8gm97942y047 07/23/2014 07/23/2014 Galileo Shahid MD Appointment Time 1sm249t7-80ov-94z8-1dd4-00f389v01351 07/23/2014 07/23/2014 Galileo Shahid MD Appointment Time 7p476wt0-5107-5x5k-fn6w-3u223544v9u2 07/23/2014 07/23/2014 Galileo Shahid MD Appointment Time [id number]-o9x0-d1s0idu5177i 07/23/2014 07/23/2014 Galileo Shahid MD Appointment Time vnc39zp1-9556-22n2-y4n0-9t49my2n2fb5 07/23/2014 07/23/2014 Galileo Shahid MD Appointment Time [id number]-5265-6s4e7w844w81 07/23/2014 07/23/2014 Galileo Shahid MD Appointment Time [id number]-74p3-s13s-8x6g3xd5sl34 07/23/2014 07/23/2014 Galileo Shahid MD Appointment Time [id number]-3sf7a9a52835 07/23/2014 07/23/2014 Galileo Shahid MD Appointment Time [id number]-1d52-t4er-p6794546w185 07/23/2014 07/23/2014 Galileo Shahid MD Appointment Time [id number]-szrt-27v5-rg42-t9ff408gc928 07/23/2014 07/23/2014 Galileo Shahid MD Appointment Time [id number]-[id number] 07/23/2014 07/23/2014 Galileo Shahid MD Appointment Time [id number]-318i-81cpl432xo69 07/23/2014 07/23/2014 Galileo Shahid MD Appointment Time [id number]-8zx1314zg8ut 07/23/2014 07/23/2014 Galileo Shahid MD Appointment Time [id number]-et6g-[id number] 07/23/2014 07/23/2014 Galileo Shahid MD Appointment Time [id number]-l75158uw7z5t 07/23/2014 07/23/2014 Galileo Shahid MD Appointment Time [id number] 07/23/2014 07/23/2014 Galileo Shahid MD f/u 7b004jzv-2637-345c-mr7m-lq40040d6ncf 07/28/2014 07/28/2014 Galileo Shahid MD f/u 1y5r1q4m-2075-1237-6355-3ee06is4bx60 07/28/2014 07/28/2014 Galileo Shahid MD f/u 602284s6-4031-3v1u-xc17-3875r2p259gf 07/28/2014 07/28/2014 Galileo Shahid MD f/u 3f922687-2774-17xv-0rj7-3p483b1s953f 07/28/2014 07/28/2014 Galileo Shahid MD f/u 6l504gs4-wg00-9346-bib0-747q11ie7r63 07/28/2014 07/28/2014 Galileo Shahid MD f/u 97v996i8-f7y0-375l-ut2q-36o24609ldc5 07/28/2014 07/28/2014 Galileo Shahid MD f/u 88i2q6z1-q42v-805m-1245-c47bs51g6344 07/28/2014 07/28/2014 Galileo Shahid MD f/u 44u79e70-3g0e-08so-d6dm-f42yw7569959 07/28/2014 07/28/2014 Galileo Shahid MD f/u v1omis0e-72c4-3cwo-r2t3-45605539s34o 07/28/2014 07/28/2014 Galileo Sahhid MD f/u 474qsu97-930t-1v44-vu5a-7l561swd9x38 07/28/2014 07/28/2014 Galileo Shahid MD f/u 3543655c-5o42-2l91-6s47-8a9w81n8s46p 07/28/2014 07/28/2014 Galileo Shahid MD RX request-- Soma 12hif101-d993-7sb9-m749-8iy64436136y 07/30/2014 07/30/2014 Galileo Shahid MD RX request-- Soma 3y2593f3-xl7p-09et-8cht-cr64742n1fot 07/30/2014 07/30/2014 Galileo Shahid MD RX request-- Soma 34n30361-18nf-4hd6-x947-l8736q26cj68 07/30/2014 07/30/2014 Galileo Shahid MD RX request-- Soma q2auaam7-w11k-441h-8uxx-985it5744428 07/30/2014 07/30/2014 Galileo Shahid MD RX request-- Soma 0g9d8220-v3n3-3809-h8q2-450g5uh69312 07/30/2014 07/30/2014 Galileo Shahid MD RX request-- Soma 5840j1yl-6823-43n1-i445-f0t0b240cyts 07/30/2014 07/30/2014 Galileo Shahid MD RX request-- Soma 8r0z6i71-cea7-2g2d-q9pz-3583p33nz9r6 07/30/2014 07/30/2014 Galileo Shahid MD RX request-- Soma 318v80yq-5545-940b-ar0r-f6ngw85112q4 07/30/2014 07/30/2014 Galileo Shahid MD RX request-- Soma 17mmia8l-5f32-89ur-995k-t3f28t2442fl 07/30/2014 07/30/2014 Galileo Shahid MD RX request-- Soma 589a8814-5778-7y93-k387-emvbvlfn68u5 07/30/2014 07/30/2014 Galileo Shahid MD RX request-- Soma 073740u2-tirq-7912-dwi9-j22315bla35g 07/30/2014 07/30/2014 Galileo Shahid MD RX request-- Soma 409g7fnb-aq4c-17yg-65z0-4rv83p4y9372 07/30/2014 07/30/2014 Galileo Shahid MD RX request-- Soma m74ye007-qb58-4o10-8b91-wu3k26pdo1pc 07/30/2014 07/30/2014 Galileo Shahid MD RX request-- Soma 04912xtx-6c3o-64ws-u656-xvs9590m1g90 07/30/2014 07/30/2014 Galileo Shahid MD RX request-- Soma yt19vwto-06c0-3073-a068-7a24o10164o3 07/30/2014 07/30/2014 Galileo Shahid MD [facility] 8064ye0c-5zgb-6kif-cu53-563d79508yu0 08/03/2014 08/03/2014 Galileo Shahid MD [place] 5vvz8s2e-d991-2q9x-k0n0-59p5vxk13nt4 08/03/2014 08/03/2014 Galileo Shahid MD [place] mk0p9966-30yc-0734-w068-9n6ono43u4ox 08/03/2014 08/03/2014 Galileo Shahid MD [place] 574coo19-2k62-1jh6-y022-21026119k804 08/03/2014 08/03/2014 Galileo Shahid MD [place] c5800ro6-9475-0z06-ghis-q12pl8482644 08/03/2014 08/03/2014 Galileo Shahid MD [place] 01wgbq53-0wki-581l-53u9-dx9ap1s4fo24 08/03/2014 08/03/2014 Galileo Shahid MD [place] 9l502s55-81z8-763y-xu23-pp90660mx717 08/03/2014 08/03/2014 Galileo Shahid MD [place] u90x702r-49v2-2342-7w72-091304n4ph11 08/03/2014 08/03/2014 Galileo Shahid MD [facility] 1453y413-j29s-4d4r-fze8-6z66j367oe9q 08/03/2014 08/03/2014 Galileo Shahid MD [place] vs94zpgv-m2v9-5m7p-4r1s-o67kvb97i2vv 08/03/2014 08/03/2014 Galileo Shahid MD [place] r00126f2-366m-7s8z-j8x0-2994xg0aj9c3 08/03/2014 08/03/2014 Galileo Shahid MD [place] 97l6wa63-p54w-8397-v594-3tgk8ru76j03 08/03/2014 08/03/2014 Galileo Shahid MD F/U 07xc187e-5q2i-1btn-438p-65rnvpv57313 10/28/2014 10/28/2014 Galileo Shahid MD F/U h20vg064-0457-1p9x-8q59-7pg7d2ny43oa 10/28/2014 10/28/2014 Galileo Shahid MD F/U zf4332yp-3tzb-8o3b-h85k-zhen41589uu2 10/28/2014 10/28/2014 Galileo Shahid MD F/U 9x85l572-0l65-4590-3632-2o177299078d 10/28/2014 10/28/2014 Galileo Shahid MD F/U 49t927lv-t604-0tl8-u53s-z4495z70g44v 10/28/2014 10/28/2014 Galileo Shahid MD F/U 401338f7-4818-81y6-3mm5-7fgx43o13404 10/28/2014 10/28/2014 Galileo Shahid MD F/U mot7k028-3rgp-31l4-u974-mphfg8cf47q2 10/28/2014 10/28/2014 Galileo Shahid MD F/U 0lfp747w-ud30-02hq-tl31-59912o3392k6 10/28/2014 10/28/2014 Galileo Shahid MD F/U hv18vh22-8487-7f39-ww38-307mh8y2555f 10/28/2014 10/28/2014 Galileo Shahid MD [facility]/U 6li85054-z90o-07cp-9zz4-1e784o0d3qi5 10/28/2014 10/28/2014 Galileo Shahid MD Skelaxin to much 41128iw2-4447-1rqy-9g13-ii8yf884me81 10/29/2014 10/29/2014 Galileo Shahid MD Skelaxin to much zl89x3t4-37u8-8p03-978f-1x1583z04i39 10/29/2014 10/29/2014 Galileo Shahid MD Skelaxin to much 604zk838-u037-118l-f766-6o05ap18w36r 10/29/2014 10/29/2014 Galileo Shahid MD Skelaxin to much 72w761g0-634m-132h-g93j-932vdy77x958 10/29/2014 10/29/2014 Galileo Shahid MD Skelaxin to much 89822d79-k623-57q6-64hj-q09y82942eqx 10/29/2014 10/29/2014 Galileo Shahid MD Skelaxin to much 1rv17381-22oa-1t2s-51a9-45sp652ow6f1 10/29/2014 10/29/2014 Galileo Shahid MD Skelaxin to much 2o8u594i-2540-9f70-kq0i-82z5627iq527 10/29/2014 10/29/2014 Galileo Shahid MD Skelaxin to much s2nm2749-9p41-1185-85e2-618hg0088603 10/29/2014 10/29/2014 Galileo Shahid MD Skelaxin to much i69915md-s05i-82ir-t20g-z25xsm525297 10/29/2014 10/29/2014 Galileo Shahid MD Skelaxin to much 333z48te-5i65-8y01-839p-10aliw4wig4v 10/29/2014 10/29/2014 Galileo Shahid MD RX Request-- Plaquenil 4ly53352-k92j-8927-o5tl-a3tni1d1f58n 10/29/2014 10/29/2014 Galileo Shahid MD RX Request-- Plaquenil 5312k0vn-531r-976e-rj07-8b218p6gp8xp 10/29/2014 10/29/2014 Galileo Shahid MD RX Request-- Plaquenil j907l566-2597-1g69-2lw9-z57q7p51755o 10/29/2014 10/29/2014 Galileo Shahid MD RX Request-- Plaquenil 7kkj9047-u7t4-98jj-2t4i-ins3ox16s696 10/29/2014 10/29/2014 Galileo Shahid MD RX Request-- Plaquenil 929p74zq-9izh-0214-1756-63c5om7878x8 10/29/2014 10/29/2014 Galileo Shahid MD RX Request-- Plaquenil 62mg42fw-83d1-6gz5-h2vn-360838p378pl 10/29/2014 10/29/2014 Galileo Shahid MD RX Request-- Plaquenil s1q1np75-1j17-00lr-hp9s-7gnm107ve614 10/29/2014 10/29/2014 Galileo Shahid MD RX Request-- Plaquenil b8n58nlx-8025-1279-sh96-9fn732sc5500 10/29/2014 10/29/2014 Galileo Shahid MD RX Request-- Plaquenil f75vg9bl-1663-5hyy-0hdz-685y91851v53 10/29/2014 10/29/2014 Galileo Shahid MD RX Request-- Plaquenil ud0m6668-2s27-1444-6096-2g3i6w1u5464 10/29/2014 10/29/2014 Galileo Shahid MD NoShow 99s32j13-0l89-234m-4j2j-z6o0j8820bin 01/28/2015 01/28/2015 Galileo Shahid MD NoShow 6592mb46-t4a5-7r47-a847-661j7n55v573 01/28/2015 01/28/2015 Galileo Shahid MD NoShow ec6a98o7-ws5s-55h6-9s2c-0k9bqw1826h6 01/28/2015 01/28/2015 Galileo Shahid MD NoShow 978c315h-20c3-057x-wfx7-7p0af7o059p4 01/28/2015 01/28/2015 Galileo Shahid MD NoShow 183b5702-wl96-8i6o-z6k6-7xjsy65482ha 01/28/2015 01/28/2015 Galileo Shahid MD NoShow vqi1313s-8y1z-8h61-plm6-c050i4a5cp67 01/28/2015 01/28/2015 Galileo Shahid MD NoShow 5o1l1777-70ji-32x4-51c5-xvd61u8x0dnz 01/28/2015 01/28/2015 Galileo Shahid MD NoShow us228481-h612-4wr2-3639-3035h8j458pm 01/28/2015 01/28/2015 Galileo Shahid MD NoShow t055067s-06wp-3q94-3204-ll56cb9d2gsl 01/28/2015 01/28/2015 Galileo Shahid [facility] [place] [facility] [id number] [place] Renteria 02/10/2015 02/11/2015 [facility] 5d8921zt-8sik-5061-6289-v2urj84wog7f 03/20/2015 03/20/2015 Galileo Shahid MD DEXA p96a2c63-5c96-642z-48ne-d055o857y439 03/20/2015 03/20/2015 Galileo Shahid MD DEXA 1l057v2t-t8q0-7dbe-8mu8-43e4510gk062 03/20/2015 03/20/2015 Galileo Shahid MD DEXA k5b08496-1m1s-302h-6o34-p6j8fo722p4y 03/20/2015 03/20/2015 Galileo Shahid MD DEXA nt4qs741-kw73-4362-0rq0-1er26zf1gq52 03/20/2015 03/20/2015 Galileo Shahid MD DEXA 18x5dcc9-p57e-1396-eq3x-p0y502wz9735 03/20/2015 03/20/2015 Galileo Shahid MD DEXA p029z1af-d8w2-51g0-913p-3i25j8v557lp 03/20/2015 03/20/2015 Galileo Shahid MD DEXA cq1q24zc-6342-2fa0-8g36-27830738qm90 03/20/2015 03/20/2015 Galileo Shahid MD DEXA 6d64535l-2538-80b9-97x4-r692qn7828c2 03/20/2015 03/20/2015 Glaileo Shahid MD F/U 4255ga2g-55wv-159m-3p11-310z2z64z21k 03/26/2015 03/26/2015 Galileo Shahid MD F/U 8fvb72w3-53dn-9365-7404-d00127715734 03/26/2015 03/26/2015 Galileo Shahid MD F/U icj8737g-621e-3918-80oz-l6oy04831itl 03/26/2015 03/26/2015 Galileo Shahid MD F/U s8d39x81-3t65-220o-78zi-6310o7h13165 03/26/2015 03/26/2015 Galileo Shahid MD F/U 7v25pd97-gb0g-7578-9935-6451c0887rx3 03/26/2015 03/26/2015 Galileo Shahid MD F/U 40eipwp8-9916-753a-q41w-sg87726c8l3g 03/26/2015 03/26/2015 Galileo Shahid MD F/U lj34m169-993e-9w1i-43i8-88x9x9172c52 03/26/2015 03/26/2015 Galileo Shahid MD labs 6xc19xmr-7110-823k-6k86-00898c17e555 03/27/2015 03/27/2015 Galileo Shahid MD labs 5vzyw2r9-95u5-140u-3735-m94ux4013398 03/27/2015 03/27/2015 Galileo Shahid MD labs q575z549-p221-4yy4-65k1-i21232n6z587 03/27/2015 03/27/2015 Galileo Shahid MD labs 79d28130-d74b-771n-c802-1c6zoo8jdy2z 03/27/2015 03/27/2015 Galileo Shahid MD labs c3y9u410-v1s6-7c41-au86-6394i3y36u9r 03/27/2015 03/27/2015 Galileo Shahid MD labs m831578l-0s50-6rae-1935-j91h55h4idg2 03/27/2015 03/27/2015 Galileo Shahid MD labs 143q117f-249l-3u7a-t7s9-p2x986303uj0 03/27/2015 03/27/2015 Galileo Shahid MD labs 063vww9a-5559-4698-3356-7qov553213b0 03/27/2015 03/27/2015 Galileo Shahid MD labs ed6dl53g-d9a7-985h-n236-35941m416257 03/27/2015 03/27/2015 Galileo Shahid MD Unknown cr31ik29-9b0g-3643-p05n-gqba5sj53745 04/01/2015 04/01/2015 Galileo Shahid MD Unknown 1r460o59-t984-7k35-56aa-221r3715w9s6 04/01/2015 04/01/2015 Galileo Shahid MD Unknown 97022h65-s469-49ax-oa4y-yab9yejp66to 04/01/2015 04/01/2015 Galileo Shahid MD Unknown 81gmn78i-yx4n-949h-9504-4z7oug82tw98 04/01/2015 04/01/2015 Galileo Shahid MD Unknown r0eu460f-2xs9-02vw-b1n4-a2221531xorb 04/01/2015 04/01/2015 Galileo Shahid MD Unknown mm0g0z36-15f3-6b9c-v13d-6k5f15054ft9 04/01/2015 04/01/2015 Galileo Shahid MD Unknown 56n297kv-6081-424s-h96e-51r5q8ptr9r7 04/01/2015 04/01/2015 Galileo Shahid MD Unknown 2kt04z62-s4o3-11k2-y7k2-8rr6o5xg0n7y 04/01/2015 04/01/2015 Galileo Shahid MD Unknown 17mg2vn5-c1h9-251t-wqn8-njvu82nf87i3 04/01/2015 04/01/2015 Galileo Shahid MD Unknown 517b04i9-206s-4l1d-af13-bq85368c65a3 04/07/2015 04/07/2015 Galileo Shahid MD Unknown q56u446l-x9mz-8as2-qni8-8004lpr3gunl 04/07/2015 04/07/2015 Galileo Shahid MD Unknown e3707fp1-57gn-540n-h5tw-a05t5s201ll7 04/07/2015 04/07/2015 Galileo Shahid MD Unknown 0u8h54z2-oz7y-5d4b-kco5-7n3485486567 04/07/2015 04/07/2015 Galileo Shahid MD Unknown 29984oc6-57k3-44wa-296m-37mv49911k0i 04/07/2015 04/07/2015 Galileo Shahid MD Unknown f44g280g-8g29-66j0-q701-5ro615p2p5my 04/07/2015 04/07/2015 Galileo Shahid MD Unknown v5x3o373-j1f0-9j35-6er6-f12p3sy9ar23 04/07/2015 04/07/2015 Galileo Shahid MD swelling 1sq1r10s-8i6j-6876-a02p-2h529j7h93k7 04/22/2015 04/22/2015 Galileo Shahid MD swelling 89x2w147-1757-116d-355v-p43c3eow2521 04/22/2015 04/22/2015 Galileo Shahid MD swelling bu08srm1-9t5q-3129-o53u-058034302fr8 04/22/2015 04/22/2015 Galileo Shahid MD swelling t9905tg1-664c-3033-mil1-352s89608k12 04/22/2015 04/22/2015 Galileo Shahid MD swelling ij5n1xfm-5f12-161t-607h-2j3r054edi74 04/22/2015 04/22/2015 Galileo Shahid [facility] [place] [facility] [phone] [place] 08/25/2015 08/26/2015 [facility] steroid taper request [id number]-6416-t592-s241nerv4otb 01/26/2016 01/26/2016 Galileo Shahid MD steroid taper request [id number]-rsl7-8w4u-w072-559e122g76f0 01/26/2016 01/26/2016 Galileo Shahid MD steroid taper request w7wp2l0a-39c8-83o3-l38a-3o4980kxn282 01/26/2016 01/26/2016 Galileo Shahid MD steroid taper request 1s5u53lg-935f-75t7-896z-1337c5p9c5v0 01/26/2016 01/26/2016 Galileo Shahid MD steroid taper request [id number]-310v-vh9o-hd8463s8280p 01/26/2016 01/26/2016 Galileo Shahid MD ALENDRONATE REFILL 09o34b1b-6h3b-283p-6e49-j67597l0252h 06/24/2016 06/24/2016 Galileo Shahid MD ALENDRONATE REFILL 6t2ox681-7586-9sj3-3870-19k2b9csrf11 06/27/2016 06/27/2016 Galileo Shahid MD ALENDRONATE REFILL 6n62n6i5-87o7-08ow-kb0i-1n8dm84ka2sk 06/27/2016 06/27/2016 Galileo Shahid MD ALENDRONATE REFILL 0ee064x2-59z1-9z41-y5ux-0008vpu94y18 06/27/2016 06/27/2016 Galileo Shahid MD ALENDRONATE REFILL 44o2cikl-1p3s-5640-m61s-uc8pb25h7a2l 06/27/2016 06/27/2016 Galileo Shahid MD Alendronate Sodium RX Refill [id number] 06/28/2016 06/28/2016 Galileo Shahid MD Alendronate Sodium RX Refill [id number] 06/28/2016 06/28/2016 Galileo Shahid MD ALENDRONATE REFILL [id number]-my868679b285 06/28/2016 06/28/2016 Galileo Shahid MD ALENDRONATE REFILL [id number]-3w03-tsgl-0n8313i1135r 06/28/2016 06/28/2016 Galileo Shahid MD [facility] REFI[facility] [id number] 06/28/2016 06/28/2016 Galileo Shahid MD MEDS REFILL [id number] 09/28/2016 09/28/2016 Galileo Shahid Procedures Procedure Code Date Perfomer Comments Source
--- OUTSIDE RECORDS SUMMARY | 2018-09-19 13:25 | XMS REPORT ---
Author Author Mykel Lopez [facility] eClinicalWorks Address Unknown Phone Unavailable Care Team Providers Care Chiropractic Physician Name Role Phone Mykel Lopez Unavailable Allergies, Adverse Reactions, Alerts Substance Reaction Event Type N.K.D.A. Info Not Available Non Drug Allergy Problems Problem Type Condition Code Onset Dates Condition Status Assessment Lumbar radiculopathy M54.16 Active Assessment Chronic pain syndrome G89.4 Active Assessment Postlaminectomy syndrome, not elsewhere classified M96.1 Active Assessment Spondylosis without myelopathy or radiculopathy, lumbosacral region M47.817 Active Assessment Encounter for long-term (current) use of other medications Z79.899 Active Problem Lumbosacral spondylosis without myelopathy 721.3 Active Problem Headache 784.0 Active Problem Lumbar radiculopathy M54.16 Active Problem Chronic pain syndrome 338.4 Active Problem Postlaminectomy syndrome, lumbar region 722.83 Active Problem Unspecified drug dependence 304.90 Active Problem Spasm of muscle 728.85 Active Medications Medication Code System Code Instructions Start Date End Date Status Dosage Nexium [facility] [address]-64 40 MG Orally Once a day Active 1 capsule Furosemide [facility] [address]-92 40 MG Orally Once a day Active 1 tablet Vitamin B-12 [facility] [address]-69 100 MCG Orally Once a day Active 1 tablet Folic Acid [facility] [address]-57 1 MG Orally Once a day Active 1 tablet Haloperidol [facility] [address]-97 1 MG Orally Once a day Active 1 tablet Mobic [facility] 72606876509 15 MG Active TAKE 1 TABLET BY MOUTH ONCE A DAY Trazodone HCl [facility] [address]-41 150 MG Orally Once a day Active 1 tablet at bedtime as needed Digoxin [facility] [address]-27 250 MCG Orally Once a day Active 1 tablet Warfarin Sodium [facility] [address]-25 3.5 mg Orally Once a day Active 1 tablet Tizanidine HCl NDC [address]-22 4 MG Orally TID May 23, 2017 Active take 1 tablet by mouth every 8 hours as needed Alendronate Sodium [facility] [address]-85 70 MG Orally Active 1 tablet Amitriptyline HCl [facility] [address]-64 50 MG Orally Once a day Active 1 tablet [place] [facility] [address]-84 10-325 MG Orally Four times a day Active 1 tablet as needed Hydroxychloroquine Sulfate [facility] [address]-23 Active as directed MAGnesium-Oxide [facility] 60228872070 400 (241.3 Mg) MG Active TAKE 1 TABLET BY MOUTH EVERY DAY Promethazine HCl [facility] [address]-63 25 MG Orally Active as directed Levothyroxin ND 0 125 MCG PO QD Active 1 Topamax ND 0 100 orally twice a day Active bid Meloxicam [facility] [address]-64 15 MG Orally Once a day May 23, 2017 Active 1 tablet Omeprazole [facility] [address]-29 40 MG Orally Once a day Active 1 capsule Cartia XT [facility] [address]-16 300 MG Orally Once a day Active 1 capsule Cafergot [facility] [address]-13 1-100 MG Orally BID PRN Headache Active 1 tab BusPIRone HCl [facility] [address]-47 10 MG Orally Twice a day Active 1 tablet Vital Signs Date/Time: February 22, 2017 BMI 22.90 Index Weight 133.4 lbs Height 64 in Temperature 98.1 F Cardiac Monitoring Heart Rate 92 /min Blood Pressure Diastolic 80 mm Hg Blood Pressure Systolic 144 mm Hg Results No Known Results Summary Purpose eClinicalWorks Submission
--- OUTSIDE RECORDS SUMMARY | 2018-09-19 13:25 | XMS REPORT | Summary of Care ---
Author Organization Unknown Address Unknown Phone Unavailable Encounter [facility]) [id number] Date(s): 02/10/15 - 02/10/15 [facility] [place] [address] [place], [place] [address] [phone] Discharge Disposition: Home Physician Attending: Oswaldo Renteria MD Vital Signs No data available for this section Problem List No data available for this section Allergies, Adverse Reactions, Alerts Substance Reaction Severity Status NKDA Active Medications No data available for this section Results No data available for this section Immunizations No data available for this section Procedures No data available for this section Social History Social History Type Response Assessment and Plan No data available for this section
--- OUTSIDE RECORDS SUMMARY | 2018-09-19 13:25 | XMS REPORT ---
Author Jigar Dickerson [facility] eClinicalWorks Address Unknown Phone Unavailable Care Team Providers Care Lead Injection Mold Technician Name Role Phone Jigar Murdock CP Unavailable Allergies, Adverse Reactions, Alerts Substance Reaction Event Type Plaquenil Not helping the pt Drug Allergy Imuran Not helping the pt Drug Allergy [facility] Infusion for [facility] Itching for at least a week Non Drug Allergy Encounters Encounter Location Date [place], and Plaquenil clarification Juan Shahid MD Jun [...] [place] Juan Shahid MD Jul 30, 2014 [place] Juan Shahid MD Aug 03, 2014 3M F/U Juan Shahid MD Oct 28, 2014 RX Request-- Plaquenil Juan Shahid MD Oct 29, 2014 Skelaxin to much Juan Shahid MD Oct 29, 2014 Problems Problem Type Condition ICD-9 Code Onset Dates Condition Status Assessment Lupus 710.0 Active Problem Lupus 710.0 Active Medications Medication Code System Code Instructions Start Date End Date Status Dosage [facility] [address]-22 800 MG Orally Three times a day Sep 29, 2014 Oct 29, 2014 Active 1 tablet Levothyroxine Sodium [facility] [address]-84 125 MCG Orally Once a day Active 1 tablet every morning on an empty stomach Warfarin Sodium [facility] [address]-82 5MG Orally Once a day Active 1 tablet Promethazine HCl [facility] [address]-29 25 MG Orally prn Active Unknown Vitamin B12 [facility] 80[address]169 Orally Active Unknown Hydrocodone-Acetaminophen [facility] [address]-08 10-325 MG Orally every 6 hrs Active 1 tablet as needed BuPROPion HCl (SR) [facility] [address]-06 150 MG Orally Twice a day Active 1 tablet Cartia XT [facility] [address]-40 300 MG Orally Once a day Active 1 capsule Soma [facility] [address]-73 350 MG Orally qd Active 2 tablets Potassium [facility] [address]-82 200 mcg Orally bid Active 1 tablet Clonazepam [facility] [address]-82 0.5 MG Orally three times a day Active 1 tablet at bedtime Plaquenil [facility] 54759229354 200 MG Orally Twice a day Active 1 tablet with food or milk Xopenex [facility] [address]-08 0.63 MG/3ML Inhalation twice a day Active 3 ml Spiriva HandiHaler [facility] [address]-92 18 MCG Inhalation twice a day Active 1 capsule Nexium [facility] [address]-59 40 MG Orally qd Active 1 tablet Digoxin [facility] [address]-01 250 mcg Injection qd Active 1 tablet Haloperidol [facility] [address]-19 1 MG Orally qam qpm Active 1 tablet Trazodone & Diet Manage Prod Unknown 0 100 MG Orally once a day Active 1 tablet Alprazolam [facility] [address]-05 1 mg Orally tid Active 1 tablet Furosemide [facility] [address]-46 40 mg Orally qd Active 1 tablet Oxybutynin Chloride [facility] [address]-26 5 MG Orally twice a day Active Unknown Social History Social History Element Qualifiers Date Reported Alcohol Screening: . Points: 0, Interpretation: Negative Oct 28, 2014 Tobacco Use: . Are you a:: current smoker , How often do you smoke cigarettes?: every day, How many cigarettes a day do you smoke?: 31 or more Oct 28, 2014 Marital Status: . Oct 28, 2014 Caffeine: yes. frequency: 3 cups Oct 28, 2014 Exercise: no. Oct 28, 2014 Alcohol: no. Oct 28, 2014 Occupation: unemployed. Oct 28, 2014 Vital Signs Date/Time: Oct 28, 2014 Weight 133 lbs Height 64 in Temperature 96.8 F Cardiac Monitoring Heart Rate 66 /min Blood Pressure Diastolic 80 mm Hg Blood Pressure Systolic 138 mm Hg Immunizations Vaccine Administration Date Depomedrol Oct 28, 2014 Summary Purpose eClinicalWorks Submission
--- OUTSIDE RECORDS SUMMARY | 2018-09-19 13:25 | XMS REPORT ---
Author Author Mykel Lopez [facility] eClinicalWorks Address Unknown Phone Unavailable Care Team Providers Care Composite Assembler Name Role Phone Mykel Lopez Unavailable Allergies, [...] Instructions Start Date End Date Status Dosage Cartia XT [facility] [address]-47 300 MG Orally Once a day Active 1 capsule Amitriptyline HCl [facility] [address]-39 50 MG Orally Once a day Active 1 tablet Topamax [facility] 0 100 orally twice a day Active bid Hydroxychloroquine Sulfate [facility] [address]-65 Active as directed Vitamin B-12 [facility] [address]-90 100 MCG Orally Once a day Active 1 tablet PrednisoLONE [facility] [address]-42 5 mg 5 days, 3 days January 23, 2017 Active take 3 , 2, 1 Cafergot [facility] [address]-56 1-100 MG Orally BID PRN Headache Active 1 tab Mobic [facility] 57438054295 15 MG Active TAKE 1 TABLET BY MOUTH ONCE A DAY Trazodone HCl [facility] [address]-58 150 MG Orally Once a day Active 1 tablet at bedtime as needed [place] [facility] [address]-83 10-325 MG Orally Four times a day Active 1 tablet as needed Warfarin Sodium [facility] [address]-37 3.5 mg Orally Once a day Active 1 tablet Promethazine HCl [facility] [address]-86 25 MG Orally Active as directed Lini Mist Analgesic [facility] [address]-13 Externally January 23, 2017 Active as directed Oxybutynin Chloride [facility] [address]-89 5 MG Orally Twice a day January 23, 2017 Active 1 tablet Digoxin [facility] [address]-75 250 MCG Orally Once a day Active 1 tablet MAGnesium-Oxide [facility] 32574576102 400 (241.3 Mg) MG Active TAKE 1 TABLET BY MOUTH EVERY DAY Omeprazole [facility] [address]-05 40 MG Orally Once a day Active 1 capsule Haloperidol [facility] [address]-90 1 MG Orally Once a day Active 1 tablet BusPIRone HCl [facility] [address]-46 10 MG Orally Twice a day Active 1 tablet Alendronate Sodium [facility] [address]-49 70 MG Orally Active 1 tablet Nexium [facility] [address]-76 40 MG Orally Once a day Active 1 capsule Tizanidine HCl [facility] [address]-85 4 MG Orally TID Active take 1 tablet by mouth every 8 hours as needed Folic Acid [facility] [address]-19 1 MG Orally Once a day Active 1 tablet Furosemide [facility] [address]-08 40 MG Orally Once a day Active 1 tablet Levothyroxin ND 0 125 MCG PO QD Active 1 Meloxicam [facility] [address]-19 15 MG Orally Once a day Active 1 tablet Alprazolam [facility] [address]-80 1 MG Orally Twice a day January 23, 2017 Active 1 tablet Vital Signs Date/Time: January 23, 2017 BMI 24.37 Index Weight 142 lbs Height 64 in Temperature 96.3 F Cardiac Monitoring Heart Rate 92 /min Blood Pressure Diastolic 80 mm Hg Blood Pressure Systolic 142 mm Hg Results No Known Results Summary Purpose eClinicalWorks Submission
--- OUTSIDE RECORDS SUMMARY | 2018-09-19 13:25 | XMS REPORT ---
Author Author Juan Shahid eClinicalWorks Address Unknown Phone Unavailable Care Team Providers Care Test Borer Helper Name Role Phone Juan Shahid CP Unavailable Encounters Encounter Location Date [place], and Plaquenil clarification Juan Shahid MD Jun 25, 2014 [place]-- Melissa Shahid MD Jul 01, 2014 Appointment Time Juan Shahid MD Jul 23, 2014 DEXA Juan Shahid MD Jul 23, 2014 crit labs Juan Shahid MD January 15, 2014 6m f/u Juan Shahid MD January 14, 2014 Follow up Juan Shahid MD Jun 18, 2014 RX request-- [place] Shahid MD Jul 30, 2014 [place] Shahid MD Aug 03, 2014 Problems Problem Type Condition ICD-9 Code Onset Dates Condition Status Problem Lupus 710.0 Active Medications Medication Code System Code Instructions Start Date End Date Status Dosage Hydrocodone-Acetaminophen [facility] [address]-16 10-325 MG Orally every 6 hrs Aug 04, 2014 Sep 03, 2014 Active 1 tablet as needed Social History Social History Element Qualifiers Date [...]
--- OUTSIDE RECORDS SUMMARY | 2018-09-19 13:25 | XMS REPORT ---
Author Jigar Dickerson [facility] eClinicalWorks Address Unknown Phone Unavailable Care Team Providers Care Cook Morning Name Role Phone Jigar Murdock CP Unavailable Allergies, Adverse Reactions, Alerts Substance Reaction Event Type Plaquenil Not helping the pt Drug Allergy Imuran Not helping the pt Drug Allergy [facility] Itching for at least a week Non Drug Allergy Encounters Encounter Location Date [place], and Plaquenil clarification Juan Shahid MD Jun [...] Shahid MD Jul 28, 2014 RX request-- [place] Shahid MD Jul 30, 2014 [place] Juan Shahid MD Aug 03, 2014 Problems Problem Type Condition ICD-9 Code Onset Dates Condition Status Assessment Lupus 710.0 Active Assessment Unspecified drug dependence 304.90 Active Problem Lupus 710.0 Active Medications Medication Code System Code Instructions Start Date End Date Status Dosage Digoxin [facility] [address]-49 250 mcg Injection qd Active 1 tablet Nexium [facility] [address]-99 40 MG Orally qd Active 1 tablet Warfarin Sodium [facility] [address]-41 5MG Orally Once a day Active 1 tablet Haloperidol [facility] [address]-14 1 MG Orally qam qpm Active 1 tablet Furosemide [facility] [address]-76 40 mg Orally qd Active 1 tablet Hair/Skin/Nails [facility] [address]39 Orally Oct 19, 2013 Active Unknown [facility]ion [facility] (SR) [facility] [address]-75 150 MG Orally Twice a day Active 1 tablet Plaquenil [facility] [address]-50 200 MG Orally Twice a day Active 1 tablet with food or milk Levothyroxine Sodium [facility] [address]-02 125 MCG Orally Once a day Active 1 tablet every morning on an empty stomach Vitamin D (Ergocalciferol) [facility] [address]-31 15384 UNIT Orally Once a week Active 1 capsule Vitamin B12 [facility] 54000-[address]25 Orally Active Unknown Hydrocodone-Acetaminophen [facility] [address]-03 10-325 MG Orally every 6 hours Jul 31, 2014 Active 1 tablet as needed for pain Trazodone & Diet Manage Prod Unknown 0 100 MG Orally once a day Active 1 tablet Xopenex [facility] [address]-23 0.63 MG/3ML Inhalation twice a day Active 3 ml Spiriva HandiHaler [facility] [address]-52 18 MCG Inhalation twice a day Active 1 capsule Promethazine HCl [facility] [address]-83 25 MG Orally prn Active Unknown Potassium [facility] [address]-51 200 mcg Orally bid Active 1 tablet Clonazepam [facility] [address]-60 0.5 MG Orally three times a day Active 1 tablet at bedtime [place] [facility] [address]-85 350 mg Orally Once a day Active 2 tablets Oxybutynin Chloride [facility] [address]-85 5 MG Orally twice a day Active Unknown Cartia XT [facility] [address]-28 300 MG Orally Once a day Active 1 capsule Alprazolam [facility] [address]-20 1 mg Orally three times a day Active 1 tablet Calcium 600 [facility] 56406-02926 600 MG Orally once a day Active 1 tablet Social History Social History Element Qualifiers Date [...] 28, 2014 Occupation: unemployed. Jul 28, 2014 Vital Signs Date/Time: Jul 28, 2014 Weight 135 lbs Height 64 in Temperature 97.6 F Cardiac Monitoring Heart Rate 80 /min Blood Pressure Diastolic 74 mm Hg Blood Pressure Systolic 120 mm Hg Immunizations Vaccine Administration Date Depomedrol Jul 28, 2014 Summary Purpose eClinicalWorks Submission
--- OUTSIDE RECORDS SUMMARY | 2018-09-19 13:25 | XMS REPORT ---
Author Author Mykel Lopez [facility] eClinicalWorks Address Unknown Phone Unavailable Care Team Providers Care Body Mechanic Name Role Phone Mykel Lopez Unavailable Allergies, Adverse Reactions, Alerts Substance Reaction Event Type N.K.D.A. Info Not Available Non Drug Allergy Problems Problem Type Condition Code Onset Dates Condition Status Assessment Lumbar radiculopathy M54.16 Active Assessment Chronic pain syndrome G89.4 Active Assessment Postlaminectomy syndrome, not elsewhere classified M96.1 Active Problem Lumbosacral spondylosis without myelopathy 721.3 Active Problem Headache 784.0 Active Problem Lumbar radiculopathy M54.16 Active Problem Chronic pain syndrome 338.4 Active Problem Postlaminectomy syndrome, lumbar region 722.83 Active Problem Unspecified drug dependence 304.90 Active Problem Spasm of muscle 728.85 Active Assessment Muscle spasm M62.838 Active Assessment Spondylosis without myelopathy or radiculopathy, lumbosacral region M47.817 Active Assessment Encounter for long-term (current) use of other medications Z79.899 Active Medications Medication Code System Code Instructions Start Date End Date Status Dosage Omeprazole [facility] [address]-34 40 MG Orally Once a day Active 1 capsule Trazodone HCl [facility] [address]-77 150 MG Orally Once a day Active 1 tablet at bedtime as needed Topamax NDC 0 50 orally twice a day Active bid BusPIRone HCl [facility] [address]-42 10 MG Orally Twice a day Active 1 tablet Clonazepam [facility] [address]-61 0.5 MG Orally once a day Apr 28, 2017 Active 1 tablet on the tongue and allow to dissolve Vitamin B-12 [facility] [address]-49 100 MCG Orally Once a day Active 1 tablet Tizanidine HCl [facility] [address]-82 4 MG Orally TID Active take 1 tablet by mouth every 8 hours as needed Haloperidol [facility] [address]-97 1 MG Orally Once a day Active 1 tablet Alendronate Sodium [facility] [address]-66 70 MG Orally Active 1 tablet Furosemide [facility] [address]-78 40 MG Orally Once a day Active 1 tablet Meloxicam [facility] [address]-20 15 MG Orally Once a day May 18, 2017 Active 1 tablet Levothyroxin [facility] 0 125 MCG PO QD Active 1 Warfarin Sodium [facility] [address]-95 3.5 mg Orally Once a day Active 1 tablet [place] [facility] [address]-73 10-325 MG Orally Four times a day Active 1 tablet as needed Amitriptyline HCl [facility] [address]-78 50 MG Orally Once a day Active 1 tablet Hydroxychloroquine Sulfate [facility] [address]-72 Active as directed Folic Acid [facility] [address]-79 1 MG Orally Once a day Active 1 tablet Cartia XT [facility] [address]-80 300 MG Orally Once a day Active 1 capsule Nexium [facility] [address]-60 40 MG Orally Once a day Active 1 capsule MAGnesium-Oxide [facility] 92374014737 400 (241.3 Mg) MG Active TAKE 1 TABLET BY MOUTH EVERY DAY Cafergot [facility] [address]-62 1-100 MG Orally BID PRN Headache Active 1 tab Gabapentin [facility] [address]-50 400 MG Orally Three times a day Active 1 capsule Digoxin [facility] [address]-81 250 MCG Orally Once a day Active 1 tablet Vital Signs Date/Time: May 22, 2017 BMI 21.80 Index Weight 127 lbs Height 64 in Temperature 96.1 F Cardiac Monitoring Heart Rate 64 /min Blood Pressure Diastolic 60 mm Hg Blood Pressure Systolic 132 mm Hg Results No Known Results Summary Purpose eClinicalWorks Submission
--- OUTSIDE RECORDS SUMMARY | 2018-09-19 13:25 | XMS REPORT ---
Author Author Juan Shahid [facility] eClinicalWorks Address Unknown Phone Unavailable Care Team Providers Care Manager Custom Name Role Phone Juan Shahid Unavailable Encounters Encounter Location Date crit labs Juan Shahid MD January 15, 2014 6m f/u Juan Shahid MD January 14, 2014 Follow up Juan Shahid MD Jun 18, 2014 Problems Problem Type Condition ICD-9 Code [...]
--- OUTSIDE RECORDS SUMMARY | 2018-09-19 13:25 | XMS REPORT ---
Author Author Mykel Lopez [facility] eClinicalWorks Address Unknown Phone Unavailable Care Team Providers Care Machine Lay Out Worker Name Role Phone Mykel Lopez CP Unavailable Allergies, Adverse Reactions, Alerts Substance Reaction Event Type N.K.D.A. Info Not Available Non Drug Allergy Problems Problem Type Condition Code Onset Dates Condition Status Assessment Chronic pain syndrome G89.4 Active Assessment Postlaminectomy syndrome, not elsewhere classified M96.1 Active Problem Lumbar radiculopathy M54.16 Active Assessment Spondylosis without myelopathy or radiculopathy, lumbosacral region M47.817 Active Assessment Muscle spasm M62.838 Active Assessment Lumbar radiculopathy M54.16 Active Assessment Encounter for long-term (current) use of other medications Z79.899 Active Medications Medication Code System Code Instructions Start Date End Date Status Dosage Clonazepam ND 96831924035 0.5 MG Orally once a day Active 1 tablet on the tongue and allow to dissolve Amitriptyline HCl ND 58067470092 50 MG Orally Once a day Active 1 tablet Tizanidine HCl ND 70408626631 5 MG Orally TID Active take 1 tablet by mouth every 8 hours as needed Levothyroxin NDC 0 125 MCG PO QD Active 1 Warfarin Sodium ND 69837864868 3.5 mg Orally Once a day Active 1 tablet Trazodone HCl ND 68098248373 150 MG Orally Once a day Active 1 tablet at bedtime as needed Folic Acid ND 33873817086 1 MG Orally Once a day Active 1 tablet Meloxicam ND 55166796700 15 MG Orally Once a day Active 1 tablet Digoxin ND 52024202294 250 MCG Orally Once a day Active 1 tablet Topamax NDC 0 50 orally twice a day Active bid Furosemide ND 01443010497 40 MG Orally Once a day Active 2 tablets MAGnesium-Oxide [facility] 50138282616 400 (241.3 Mg) MG Active TAKE 1 TABLET BY MOUTH EVERY DAY Gabapentin ND 91034323775 400 MG Orally Three times a day Active 1 capsule Alendronate Sodium [facility] 10502323097 70 MG Orally Active 1 tablet Hydroxychloroquine Sulfate [facility] 21811723784 Active as directed Cartia XT [facility] 36370360855 300 MG Orally Once a day Active [address] [facility] 50127080015 40 MG Orally Once a day Active [address] [facility] 45146469057 40 MG Orally Once a day Active 1 capsule BusPIRone HCl [facility] 71126491154 10 MG Orally Twice a day Active [address] [facility] 73200319262 1 MG Orally twice a day Active [address] [facility] 65812837864 10-325 MG Orally Four times a day Active 1 tablet as needed Vitamin B-[address] [facility] 30433340790 100 MCG Orally Once a day Active [address] [facility] 49266102958 1-100 MG Orally BID PRN Headache Active 1 tab Vital Signs Date/Time: Jul 21, 2017 BMI 20.75 Index Weight 120.9 lbs Height 64 in Temperature 97.6 F Cardiac Monitoring Heart Rate 88 /min Blood Pressure Diastolic 60 mm Hg Blood Pressure Systolic 142 mm Hg Results No Known Results Summary Purpose eClinicalWorks Submission
--- OUTSIDE RECORDS SUMMARY | 2018-09-19 13:25 | XMS REPORT ---
Author Author Juan Shahid [facility] eClinicalWorks Address Unknown Phone Unavailable Care Team Providers Care Communications Editor Name Role Phone Juan Shahid CP Unavailable Encounters Encounter Location Date [place], and Plaquenil clarification Juan Shahid MD Jun 25, 2014 [place]-- [place] Juan Shahid MD Jul 01, 2014 crit labs Juan Shahid MD January 15, 2014 6m f/u Juan Shahid MD January 14, 2014 Follow up Juan Shahid MD Jun 18, 2014 Problems Problem Type Condition ICD-9 Code Onset Dates Condition Status Problem Lupus 710.0 Active Medications Medication Code System Code Instructions Start Date End Date Status Dosage Hydrocodone-Acetaminophen [facility] [address]-69 10-325 MG Orally three times a day Jul 31, 2014 Active 1 tablet as needed for pain Social History Social History Element Qualifiers Date [...]
--- OUTSIDE RECORDS SUMMARY | 2018-09-19 13:25 | XMS REPORT ---
Author Author Juan Shahid eClinicalWorks Address Unknown Phone Unavailable Care Team Providers Care Educational Resource Center Teacher Name Role Phone Juan Shahid CP Unavailable Encounters Encounter Location Date [place], and Plaquenil clarification Juan Shahid MD Jun 25, 2014 [place]-- [place] Shahid MD Jul 01, 2014 Appointment Time Juan Shahid MD Jul 23, 2014 DEXA Juan Shahid MD Jul 23, 2014 crit labs Juan Shahid MD January 15, 2014 6m f/[place] Shahid MD January 14, 2014 Follow up Juan Shahid MD Jun 18, 2014 f/u Juan Shahid MD Jul 28, 2014 steroid taper request Juan Shahid MD January 26, 2016 swelling Juan Shahid MD Apr 22, 2015 RX request-- [place] Juan Shahid MD Jul 30, 2014 [place] Shahid MD Aug 03, 2014 Unknown Juan Shahid MD April 01, 2015 3M F/U Juan Shahid MD March 26, 2015 DEXA Juan Shahid MD March 20, 2015 labs Juan Shahid MD March 27, 2015 ALENDRONATE REFILL Juan Shahid MD Jun 27, 2016 3M F/U Juan Shahid MD Oct 28, 2014 ALENDRONATE REFILL Juan Shahid MD Jun 28, 2016 NoShow Juan Shahid MD January 28, 2015 RX Request-- Plaquenil Juan Shahid MD Oct 29, 2014 Skelaxin to much Juan Shahid MD Oct 29, 2014 Unknown Juan Shhaid MD April 07, 2015 Problems Problem Type Condition ICD-9 Code Onset Dates Condition Status Problem Lupus 710.0 Active Problem Osteoporosis, postmenopausal 733.01 Active Medications Medication Code System Code Instructions Start Date End Date Status Dosage Alendronate Sodium [facility] 23152711567 70 MG Orally Once a week Jun 28, 2016 Active 1 tablet Social History Social History [...]
--- OUTSIDE RECORDS SUMMARY | 2018-09-19 13:25 | XMS REPORT ---
Author Author Juan Shahid eClinicalWorks Address Unknown Phone Unavailable Care Team Providers Care Fuel Buyer Name Role Phone Juan Shahid CP Unavailable Encounters Encounter Location Date f/u Juan Shahid MD Jul 28, 2014 Unknown Juan Shahid MD April 01, [...] Unknown Juan Shahid MD April 07, 2015 [place], and Plaquenil clarification Juan Shahid MD Jun 25, 2014 [place]-- Melissa Shahid MD Jul 01, 2014 Appointment Time Juan Shahid MD Jul 23, 2014 [place]IZ[place] Shahid MD Jul 23, 2014 crit labs Juan Shahid MD January 15, 2014 6m f/u Juan Shahid MD January 14, 2014 Follow up Juan Shahid MD Jun 18, 2014 steroid taper request Juan Shahid MD January 26, 2016 swelling Juan Shahid MD Apr 22, 2015 RX request-- [place] Juan Shahid MD Jul 30, 2014 [place] Juan Shahid MD Aug 03, 2014 ALENDRONATE REFILL Juan Shahid MD Jun 27, 2016 ALENDRONATE REFILL Juan Shahid MD Jun 28, 2016 Alendronate Sodium RX Refill Juan Shahid MD Jun 28, 2016 ALENDRONATE REFILL Juan Shahid MD Jun 24, 2016 Problems Problem Type Condition ICD-9 Code Onset Dates Condition Status Problem Lupus 710.0 Active Problem Osteoporosis, postmenopausal 733.01 Active Medications Medication Code System Code Instructions Start Date End Date Status Dosage Alendronate Sodium [facility] 19486098056 70 MG Orally Once a day Active TAKE 1 TABLET EVERY WEEK Social History Social History Element Qualifiers Date [...]
--- OUTSIDE RECORDS SUMMARY | 2018-09-19 13:25 | XMS REPORT ---
Author Author Juan Shahid eClinicalWorks Address Unknown Phone Unavailable Care Team Providers Care Space Technologist Name Role Phone Juan Shahid CP Unavailable Encounters Encounter Location Date [place], and Plaquenil clarification Juan Shahid MD Jun 25, 2014 Triplicate-- Melissa Shahid MD Jul 01, 2014 Appointment Time Juan Shahid MD Jul 23, 2014 DEXA Juan Shahdi MD Jul 23, 2014 crit labs Juan Shahid MD January 15, 2014 6m f/u Juan Shahid MD January 14, 2014 Follow up Juan Shahid MD Jun 18, 2014 f/u Juan Shahid MD Jul 28, 2014 RX request-- [place] Juan Shahid MD Jul 30, 2014 [place] Juan Shahid MD Aug 03, 2014 Unknown Juan Shahid MD April 01, 2015 DEXA Juan Shahid MD March 20, [...] Instructions Start Date End Date Status Dosage Bactrim DS MEDISPAN [address]-57 800-160 MG Orally Once a day April 01, 2015 Apr 11, 2015 Active 1 tablet Social History Social History [...]
--- OUTSIDE RECORDS SUMMARY | 2018-09-19 13:25 | XMS REPORT ---
Author Author Juan Shahid eClinicalWorks Address Unknown Phone Unavailable Care Team Providers Care Fitter/Welder Name Role Phone Juan Shahid CP Unavailable Encounters Encounter Location Date [place], and Plaquenil clarification Juan Shahid MD Jun [...] [place] Juan Shahid MD Jul 30, 2014 [place] Juan Shahid MD Aug 03, 2014 Unknown [...] 710.0 Active Problem Osteoporosis, postmenopausal 733.01 Active Social History Social History Element Qualifiers [...]
--- OUTSIDE RECORDS SUMMARY | 2018-09-19 13:25 | XMS REPORT ---
Author Author Mykel Lopez [facility] eClinicalWorks Address Unknown Phone Unavailable Care Team Providers Care Manager Equity Name Role Phone Mykel Lopez CP Unavailable Allergies No Known Allergies Problems Problem Type Condition Code Onset Dates [...] Start Date End Date Status Dosage Digoxin [facility] [address]-99 250 MCG Orally Once a day Active 1 tablet Warfarin Sodium [facility] [address]-92 3.5 mg Orally Once a day Active 1 tablet Levothyroxin [facility] 0 125 MCG PO QD Active 1 Haloperidol [facility] [address]-48 1 MG Orally Once a day Active 1 tablet Omeprazole [facility] [address]-18 40 MG Orally Once a day Active 1 capsule Tizanidine HCl [facility] [address]-79 4 MG Orally TID Active take 1 tablet by mouth every 8 hours as needed Trazodone HCl [facility] [address]-70 150 MG Orally Once a day Active 1 tablet at bedtime as needed Nexium [facility] [address]-19 40 MG Orally Once a day Active 1 capsule Vitamin B-12 [facility] [address]-51 100 MCG Orally Once a day Active 1 tablet Mobic [facility] 94197206892 15 MG Active TAKE 1 TABLET BY MOUTH ONCE A DAY Folic Acid NDC [address]-49 1 MG Orally Once a day Active 1 tablet Amitriptyline HCl [facility] [address]-98 50 MG Orally Once a day Active 1 tablet Cutler [facility] [address]-58 10-325 MG Orally Four times a day Active 1 tablet as needed MAGnesium-Oxide [facility] 14474708962 400 (241.3 Mg) MG Active TAKE 1 TABLET BY MOUTH EVERY DAY BusPIRone HCl [facility] [address]-61 10 MG Orally Twice a day Active 1 tablet Promethazine HCl [facility] [address]-27 25 MG Orally Active as directed Furosemide [facility] [address]-90 40 MG Orally Once a day Active 1 tablet Topamax [facility] 0 100 orally twice a day Active bid Meloxicam [facility] [address]-44 15 MG Orally Once a day Active 1 tablet Cafergot [facility] [address]-02 1-100 MG Orally BID PRN Headache Active 1 tab Cartia XT [facility] [address]-95 300 MG Orally Once a day Active 1 capsule Alendronate Sodium [facility] [address]-49 70 MG Orally Active 1 tablet Hydroxychloroquine Sulfate [facility] [address]-40 Active as directed Results No Known Results Summary Purpose eClinicalWorks Submission
--- OUTSIDE RECORDS SUMMARY | 2018-09-19 13:25 | XMS REPORT ---
Author Author Juan Shahid eClinicalWorks Address Unknown Phone Unavailable Care Team Providers Care Otolaryngology Rep Name Role Phone Juan Shahid CP Unavailable Encounters Encounter Location Date [place], and Plaquenil clarification Juan Shahid MD Jun [...] Shahid MD Apr 22, 2015 RX request-- [place] Shahid MD Jul 30, 2014 [place] Shahid MD Aug 03, 2014 Unknown Juan Shahid MD April 01, 2015 3M F/U Juan Shahid MD March 26, 2015 DEXA Juan Shahid MD March 20, 2015 labs Juan Shahid MD March 27, 2015 ALENDRONATE REFILL Juan Shahid MD Jun 27, 2016 3M F/U Juan Shahid MD Oct 28, 2014 NoShow Juan Shahid MD January 28, 2015 RX Request-- Plaquepriyank Shahid MD Oct 29, 2014 Skelaxin to much Juan Shahid MD Oct 29, 2014 Unknown Juan Shahid MD April 07, 2015 Problems Problem Type Condition ICD-9 Code Onset Dates Condition Status Problem Lupus 710.0 Active Problem Osteoporosis, postmenopausal 733.01 Active Medications Medication Code System Code Instructions Start Date End Date Status Dosage Alendronate Sodium MEDISPAN 69707223795 70 MG Orally Once a day Active [...]
--- OUTSIDE RECORDS SUMMARY | 2018-09-19 13:25 | XMS REPORT ---
Author Author Juan Shahid [facility] eClinicalWorks Address Unknown Phone Unavailable Care Team Providers Care Legal Associate Name Role Phone Juan Shahid Unavailable Encounters Encounter Location Date [place], and Plaquenil clarification Juan Shahid MD Jun 25, 2014 crit labs Juan Shahid MD January 15, 2014 6m f/u Juan Shahid MD January 14, 2014 Follow up Juan Shahid MD Jun 18, 2014 Problems Problem Type Condition ICD-9 Code Onset Dates Condition Status Problem Lupus 710.0 Active Medications Medication Code System Code Instructions Start Date End Date Status Dosage Plaquenil MEDISPAN [address]-04 200 MG Orally Twice a day Active 1 tablet with food or milk Social History Social History Element Qualifiers Date [...]
--- OUTSIDE RECORDS SUMMARY | 2018-09-19 13:25 | XMS REPORT ---
Author Author Juan Shahid eClinicalWorks Address Unknown Phone Unavailable Care Team Providers Care Manager Group Name Role Phone Juan Shahid CP Unavailable Encounters Encounter Location Date [place], and Plaquenil clarification Juan Shahid MD Jun [...] [place] Juan Shahid MD Jul 30, 2014 [place] Shahid MD Aug 03, 2014 Unknown Juan [...] NoShow Juan Shahid MD January 28, 2015 Alendronate Sodium RX Refill Juan Shahid MD Jun 28, 2016 RX Request-- [place] Juan Shahid MD Oct 29, 2014 Skelaxin to much Juan Shahid MD Oct 29, 2014 Unknown Juan Shahid MD April 07, 2015 Problems Problem Type Condition ICD-9 Code Onset Dates Condition Status Problem Lupus 710.0 Active Problem Osteoporosis, postmenopausal 733.01 Active Medications Medication Code System Code Instructions Start Date End Date Status Dosage Alendronate Sodium MEDISPAN 60589030629 70 MG Orally Once a day Jun 28, 2016 Active 1 tablet Social [...]
--- OUTSIDE RECORDS SUMMARY | 2018-09-19 13:25 | XMS REPORT ---
Author Author Naty Cruz [facility] eClinicalWorks Address Unknown Phone Unavailable Care Team Providers Care Retail Sales Specialist Name Role Phone Naty Cruz CP Unavailable Allergies, Adverse Reactions, Alerts Substance Reaction Event Type Plaquenil Not helping the pt Drug Allergy Imuran Not helping the pt Drug Allergy [facility] Infusion for Research Itching for at least a week Non Drug Allergy Encounters Encounter Location Date [place], and Plaquenil clarification Juan Shahid MD Jun [...] MD Jul 28, 2014 RX request-- [place] Jaun Shahid MD Jul 30, 2014 [place] Juan Shahid MD Aug 03, 2014 Arti Shahid MD April 01, 2015 3M F/U Juan Shahid MD March 26, 2015 DEXA Juan Shahid MD March 20, 2015 ro Shahid MD March 27, 2015 3M F/López Shahid MD Oct 28, 2014 NoShow Juan Shahid MD January 28, 2015 RX Request-- [place] Juan Shahid MD Oct 29, 2014 Skelaxin to much Juan Shahid MD Oct 29, 2014 Unknown Juan Shahid MD April 07, 2015 Problems Problem Type Condition ICD-9 Code Onset Dates Condition Status Problem Lupus 710.0 Active Assessment Lupus 710.0 Active Problem Osteoporosis, postmenopausal 733.01 Active Assessment Long-term (current) use of other medications - High Risk V58.69 Active Assessment Osteoporosis, postmenopausal 733.01 Active Medications Medication Code System Code Instructions Start Date End Date Status Dosage Trazodone & Diet Manage Prod Unknown 0 100 MG Orally once a day Active 1 tablet Alendronate Sodium [facility] [address]-28 70 MG Orally every week March 26, 2015 Jul 24, 2015 Active 1 tablet Potassium [facility] [address]-06 200 mcg Orally bid Active 1 tablet Xopenex [facility] [address]-80 0.63 MG/3ML Inhalation twice a day Active 3 ml Warfarin Sodium [facility] [address]-11 5MG Orally Once a day Active 1 tablet Promethazine HCl [facility] [address]-14 25 MG Orally prn Active Unknown Amitriptyline HCl [facility] [address]-85 25 MG Orally Once a day Active 1 tablet at bedtime Vitamin B12 [facility] 15893-41345 Orally Active Unknown Plaquenil [facility] [address]-33 200 MG Orally Twice a day Jul 26, 2015 Active 1 tablet with food or milk BuPROPion HCl (SR) [facility] [address]-57 150 MG Orally Twice a day Active 1 tablet Spiriva HandiHaler [facility] [address]-98 18 MCG Inhalation twice a day Active 1 capsule Levothyroxine Sodium [facility] [address]-15 100MCG Orally Once a day Active 1 tablet every morning on an empty stomach Digoxin [facility] [address]-36 250 mcg Injection qd Active 1 tablet Alprazolam [facility] [address]-67 1 mg Orally tid Active 1 tablet Furosemide [facility] [address]-96 40 mg Orally qd Active 1 tablet Hydrocodone-Acetaminophen [facility] [address]-35 10-325 MG Orally every 6 hrs Active 1 tablet as needed Clonazepam [facility] [address]-09 0.5 MG Orally three times a day Active 1 tablet at bedtime Haloperidol [facility] [address]-43 1 MG Orally qam qpm Active 1 tablet Social History Social History [...] 26, 2015 Occupation: unemployed. March 26, 2015 Vital Signs Date/Time: March 26, 2015 Weight 138 lbs Height 64 in Temperature 98.2 F Cardiac Monitoring Heart Rate 66 /min Blood Pressure Diastolic 62 mm Hg Blood Pressure Systolic 108 mm Hg Results COMPREHENSIVE METABOLIC PANEL W/EGFR CALCIUM(-8.6-10.2 mg/dL) 8.1 CARBON DIOXIDE(-19-30 mmol/L) 21 ALT(-6-29 U/L) 6 CREATININE(-0.50-1.10 mg/dL) 0.56 AST(-10-35 U/L) 13 eGFR NON-AFR. MALTESE(-> OR=60 mL/min/1.73m2) 109 ALKALINE PHOSPHATASE(-33-115 U/L) 70 eGFR (-> OR=60 mL/min/1.73m2) 127 BILIRUBIN, TOTAL(-0.2-1.2 mg/dL) 0.4 BUN/CREATININE RATIO(-6-22 (calc)) 4 ALBUMIN/GLOBULIN RATIO(-1.0-2.5 (calc)) 1.3 SODIUM(-135-146 mmol/L) 118 GLOBULIN(-1.9-3.7 g/dL (calc)) 2.7 POTASSIUM(-3.5-5.3 mmol/L) 4.5 GLUCOSE(-65-99 mg/dL) 59 CHLORIDE(-98-110 mmol/L) 85 ALBUMIN(-3.6-5.1 g/dL) 3.5 UREA NITROGEN (BUN)(-7-25 mg/dL) 2 PROTEIN, TOTAL(-6.1-8.1 g/dL) 6.2 SED RATE BY MODIFIED WESTERGREN SED RATE BY MODIFIED WESTERGREN(-< OR=20 mm/h) 6 C-REACTIVE PROTEIN C-REACTIVE PROTEIN(-<0.80 mg/dL) 4.41 CBC (INCLUDES DIFF/PLT) MCHC(-32.0-36.0 g/dL) 33.7 MCH(-27.0-33.0 pg) 27.5 PLATELET COUNT(-140-400 Thousand/uL) 255 RDW(-11.0-15.0 %) 15.3 BASOPHILS(- %) 0.8 ABSOLUTE NEUTROPHILS(-0691-6238 cells/uL) 3696 ABSOLUTE LYMPHOCYTES(-850-3900 cells/uL) 1221 MPV(-7.5-11.5 fL) 8.7 ABSOLUTE BASOPHILS(-0-200 cells/uL) 45 HEMATOCRIT(-35.0-45.0 %) 31.4 NEUTROPHILS(- %) 66.0 MCV(-80.0-100.0 fL) 81.8 RED BLOOD CELL COUNT(-3.80-5.10 Million/uL) 3.84 ABSOLUTE MONOCYTES(-200-950 cells/uL) 610 ABSOLUTE EOSINOPHILS(-15-500 cells/uL) 28 HEMOGLOBIN(-11.7-15.5 g/dL) 10.6 EOSINOPHILS(- %) 0.5 WHITE BLOOD CELL COUNT(-3.8-10.8 Thousand/uL) 5.6 LYMPHOCYTES(- %) 21.8 MONOCYTES(- %) 10.9 C3, C4, COMPLEMENT COMPLEMENT, TOTAL (CH50)(-31-60 U/mL) >60 COMPLEMENT COMPONENT C3C(- mg/dL) 118 COMPLEMENT COMPONENT C4C(-ADULTS: 16-47 mg/dL) 16 PROTEIN, TOTAL W/CREAT, RANDOM URINE PROTEIN, TOTAL, RANDOM UR(-5-24 mg/dL) <4 PROTEIN/CREATININE RATIO(-21-161 mg/g creat) NOTE CREATININE, RANDOM URINE(-20-320 mg/dL) 8 SM AND SM/TRAY LINE WORKER ANTIBODIES SM ANTIBODY(-<1.0 NEG AI) <1.0 NEG SM/TRAY LINE WORKER ANTIBODY(-<1.0 NEG AI) 7.0 POS DS DNA-Crithidia Ifa w/ Reflex DNA AB (DS) CRITHIDIA,IFA(-NEGATIVE ) NEGATIVE HORACIO IFA SCREEN W/REFL TO TITER AND PATTERN, IFA HORACIO TITER(- titer) 1:640 HORACIO PATTERN(- ) NUCLEOLAR HORACIO SCREEN, IFA(-NEGATIVE ) POSITIVE URINALYSIS, COMPLETE BILIRUBIN(-NEGATIVE ) NEGATIVE GLUCOSE(-NEGATIVE ) NEGATIVE PH(-5.0-8.0 ) 6.5 SPECIFIC GRAVITY(-1.001-1.035 ) < OR=1.005 PROTEIN(-NEGATIVE ) NEGATIVE OCCULT BLOOD(-NEGATIVE ) TRACE KETONES(-NEGATIVE ) NEGATIVE APPEARANCE(-CLEAR ) CLOUDY HYALINE CAST(-NONE SEEN /LPF) NONE SEEN COLOR(-YELLOW ) YELLOW SQUAMOUS EPITHELIAL CELLS(-< OR=5 /HPF) NONE SEEN BACTERIA(-NONE SEEN /HPF) FEW WBC(-< OR=5 /HPF) 10-20 RBC(-< OR=2 /HPF) NONE SEEN NITRITE(-NEGATIVE ) POSITIVE LEUKOCYTE ESTERASE(-NEGATIVE ) 3+ SJOGREN'S ANTIBODIES (SS-A,SS-B) SJOGREN'S ANTIBODY (SS-B)(-<1.0 NEG AI) <1.0 NEG SJOGREN'S ANTIBODY (SS-A)(-<1.0 NEG AI) <1.0 NEG Summary Purpose eClinicalWorks Submission
--- OUTSIDE RECORDS SUMMARY | 2018-09-19 13:25 | XMS REPORT ---
Author Author Juan Shahid eClinicalWorks Address Unknown Phone Unavailable Care Team Providers Care System Support Technician Name Role Phone Juan Shahid CP Unavailable Encounters Encounter Location Date [place], and Plaquenil clarification Juan Shahid MD Jun [...] ro Shahid MD March 27, 2015 3M F/U Juan Shahid MD Oct 28, 2014 NoSwill Shahid MD January 28, 2015 RX Request-- Plaquenil Juan Shahid MD Oct 29, 2014 Skelaxin to much Juan Shahid MD Oct 29, 2014 Unknown Juna Shahid MD April 07, 2015 Problems Problem Type Condition ICD-9 Code Onset Dates Condition Status Problem Lupus 710.0 Active Problem Osteoporosis, postmenopausal 733.01 Active Medications Medication Code System Code Instructions Start Date End Date Status Dosage Prednisone Taper MEDISPAN 2849-8463-38 5mg PO q am with food January 26, 2016 February 11, 2016 Active 3 tablets for 5 days, 2 tablets for 5 days and then 1 tablet for 5 days Social History Social History Element Qualifiers Date Reported Alcohol Screening: . Points: 0, Interpretation: Negative Oct 19, 2015 Tobacco Use: . Are you a:: current smoker , How often do you smoke cigarettes?: every day, How many cigarettes a day do you smoke?: 31 or more Oct 19, 2015 Marital Status: . Oct 19, 2015 Caffeine: yes. frequency: 3 cups Oct 19, 2015 Exercise: no. Oct 19, 2015 Alcohol: no. Oct 19, 2015 Occupation: unemployed. Oct 19, 2015 Summary Purpose eClinicalWorks Submission
--- OUTSIDE RECORDS SUMMARY | 2018-09-19 13:25 | XMS REPORT | Summary of Care ---
Author Author [facility] [place] Organization [facility] [place] Address Unknown Phone Unavailable Encounter HQ Encntr_giselle(FIN) [id number] Date(s): 08/25/15 - 08/25/[address] [facility] [place] [address] [place] [address]- [facility] [phone] Discharge Disposition: Home Attending Physician: Mykel Lopez MD Vital Signs No data available for [...]
--- OUTSIDE RECORDS SUMMARY | 2018-09-19 13:26 | XMS REPORT ---
Author Author Mykel Lopez Organization eClinicalWorks Address Unknown Phone Unavailable Care Team Providers Care Caterers Helper Name Role Phone Mykel Lopez CP Unavailable Allergies, Adverse Reactions, Alerts Substance Reaction Event Type N.K.D.A. Info Not Available Non Drug Allergy Encounters Encounter Location Date [facility] Juan Shahid MD Sep 28, 2016 Problems Problem Type Condition ICD-9 Code Onset Dates Condition Status Assessment Lumbar [...] Instructions Start Date End Date Status Dosage Furosemide [facility] [address]-03 40 MG Orally Once a day Active 1 tablet Levothyroxin Unknown 0 125 MCG PO QD Active 1 Meloxicam [facility] [address]-97 15 MG Orally Once a day December 27, 2016 Active 1 tablet Digoxin [facility] [address]-83 250 MCG Orally Once a day Active 1 tablet Omeprazole [facility] [address]-82 40 MG Orally Once a day Active 1 capsule Hydroxychloroquine Sulfate [facility] [address]-57 Active as directed Alendronate Sodium [facility] [address]-15 70 MG Orally Active 1 tablet Vitamin B-12 [facility] [address]-55 100 MCG Orally Once a day Active 1 tablet Amitriptyline HCl [facility] [address]-22 50 MG Orally Once a day Active 1 tablet Haloperidol [facility] [address]-17 1 MG Orally Once a day Active 1 tablet PrednisoLONE [facility] [address]-38 5 mg 5 days, 3 days Active take 3 , 2, 1 Tizanidine HCl [facility] [address]-87 4 MG Orally TID Active take 1 tablet by mouth every 8 hours as needed BusPIRone HCl [facility] [address]-79 10 MG Orally Twice a day Active 1 tablet Trazodone HCl [facility] [address]-97 150 MG Orally Once a day Active 1 tablet at bedtime as needed Promethazine HCl [facility] [address]-49 25 MG Orally Active as directed Warfarin Sodium [facility] [address]-42 3.5 mg Orally Once a day Active 1 tablet Topamax Unknown 0 100 orally twice a day Active bid Cartia XT [facility] [address]-29 300 MG Orally Once a day Active 1 capsule Nexium [facility] [address]-24 40 MG Orally Once a day Active 1 capsule Merrill [facility] [address]-83 10-325 MG Orally Four times a day Active 1 tablet as needed Oxybutynin Chloride [facility] [address]-27 5 MG Orally Twice a day Active 1 tablet Lini Mist Analgesic [facility] [address]-48 Externally Active as directed Cafergot [facility] [address]-42 1-100 MG Orally BID PRN Headache Active 1 tab Alprazolam [facility] [address]-88 1 MG Orally Twice a day Active 1 tablet Folic Acid [facility] [address]-47 1 MG Orally Once a day Active 1 tablet Social History Social History Element Qualifiers Date Reported Diet: no. Sep 28, 2016 Tobacco Use: . Are you a:: current smoker , How often do you smoke cigarettes?: every day, How many cigarettes a day do you smoke?: 31 or more, Are you a:: current smoker , How often do you smoke cigarettes?: every day, How many cigarettes a day do you smoke?: 31 or more, Are you a:: current smoker , How often do you smoke cigarettes?: every day, How many cigarettes a day do you smoke?: 31 or more, Are you a:: current smoker , How often do you smoke cigarettes?: every day, How many cigarettes a day do you smoke?: 31 or more Sep 28, 2016 Pets: none. Sep 28, 2016 Marital Status: , , , . Sep 28, 2016 Caffeine: yes. frequency:, 3 cups, frequency: Sep 28, 2016 Exercise: no. Sep 28, 2016 Alcohol: no. Sep 28, 2016 Occup. exposure: none. Sep 28, 2016 Occupation: unemployed, unemployed, unemployed, unemployed. Sep 28, 2016 Vital Signs Date/Time: Sep 28, 2016 Weight 142.1 lbs Height 64 in Temperature 96.8 F Blood Pressure Diastolic 60 mm Hg Blood Pressure Systolic 106 mm Hg Summary Purpose eClinicalWorks Submission
--- OUTSIDE RECORDS SUMMARY | 2018-09-19 13:26 | XMS REPORT ---
Author Author Mykel Lopez Organization eClinicalWorks Address Unknown Phone Unavailable Care Team Providers Care Mirror Painter Name Role Phone Mykel Lopez CP Unavailable Allergies No Known Allergies Problems Problem Type Condition Code Onset Dates Condition Status Problem Lumbosacral spondylosis without myelopathy 721.3 Active Problem Headache 784.0 Active Problem Lumbar radiculopathy M54.16 Active Problem Chronic pain syndrome 338.4 Active Problem Postlaminectomy syndrome, lumbar region 722.83 Active Problem Unspecified drug dependence 304.90 Active Problem Spasm of muscle 728.85 Active Medications No Known Medications Results No Known Results Summary Purpose eClinicalWorks Submission
--- OUTSIDE RECORDS SUMMARY | 2018-09-19 13:26 | XMS REPORT ---
[facility] Address Unknown Phone Unavailable Care Team Providers Care Sewer Pipe Layer Helper Name Role Phone Ezekiel ROSARIO Unavailable Unavailable Payers Payer Name Policy Type Policy Number Effective Date Expiration Date Problems This patient has no known problems. Allergies, Adverse Reactions, Alerts Allergy Name Allergy Type Status Severity Reaction(s) Onset Date Inactive Date Treating Clinician Comments No Known Allergies DA Active U 2018-07-20 00:00:00 No Known Allergies DA Active U 2014-01-31 00:00:00 Medications This patient has no known medications. Results Test Description Test Time Test Comments Text Results Atomic Results Result Comments CT ABDOMEN/PELVIS WOW [place] [address] Patient Name: EUN EDOUARD MR #: [id number] : 1965 Age/Sex: 52/F Req #: [id number] Adm Physician: Ordered by: VERA ROSARIO MD Report #: [id number] Location: CT Room/Bed: Procedure: [id number] CT/CT ABDOMEN/PELVIS WOW Exam Date: 07/21/17 Exam Time: 1410 REPORT STATUS: Signed PROCEDURE: CT ABDOMEN T PELVIS W/WO CONTRAST TECHNIQUE: The abdomen and pelvis were scanned utilizing a multidetector helical scanner from the diaphragm to the lesser trochanter before and after the IV administration of 150 cc of Isovue 370 and the oral administration of 900 cc of water. Coronal and sagittal multiplanar reformations were obtained. CT urography protocol was performed. Patient was scanned in the prone position. 3D volume rendered images were created. DLP: 419.2 mGy-cm COMPARISON: None. INDICATIONS: urinary reflux, right side abdominal swelling FINDINGS: LOWER THORAX: Centrilobular and tree-in-bud opacities in the right lower lobe, likely infectious. Mild emphysematous changes. HEPATOBILIARY: No focal hepatic lesions. CBD measures 1.1 cm, likely related to post-cholecystectomy reservoir effect. SPLEEN: No splenomegaly. PANCREAS: No focal masses or ductal dilatation. ADRENALS: No adrenal nodules. KIDNEYS/URETERS: No renal masses or stones. Mild left pelvocaliectasis. No right hydronephrosis on non-contrast CT. Kidneys enhance symmetrically. 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 No filling defects in the opacified urinary collecting system. The right mid to distal ureter and left mid ureter are not well opacified likely secondary to peristalsis, but with otherwise unremarkable unopacified appearance. PELVIC ORGANS/BLADDER: Urinary bladder is distended. No filling defects within the portions of the bladder opacified by excreted contrast. Hysterectomy. PERITONEUM / RETROPERITONEUM: No free air or fluid. Surgical clips in the anterior abdominal wall and pelvis. LYMPH NODES: No lymphadenopathy. VESSELS: Moderate atherosclerotic calcifications. No abdominal aortic aneurysm. GI TRACT: No distention or wall thickening. Ileocecal valve is not identified. Surgical clips in the proximal ascending colon likely related to bowel resection with ileocolonic anastomosis. BONES AND SOFT TISSUES: L4- L5 and laminectomy defects with possible bone harvest graft site from the left iliac crest. IMPRESSION: 1. Mildly malrotated left kidney with mild pelvocaliectasis without obstructing lesion or stone. Kidneys enhance symmetrically without perinephric stranding. 2. No urinary tract calculi, renal masses, or filling defects within the opacified urinary collecting system. 3. Emphysema with few likely infectious centrilobular and tree-in-bud opacities in the right lower lobe. Dictated by: Bayron Fairbanks M.D. on 07/21/2017 at 17:00 Electronically approved by: Bayron Fairbanks M.D. on 07/21/2017 at 17:00 Dictated By: BAYRON FAIRBANKS MD 170 Transcribed By: IN FCE on 07/21/17 170 COPY TO: VERA ROSARIO MD
--- OUTSIDE RECORDS SUMMARY | 2018-09-19 13:26 | XMS REPORT ---
Author Author Mykel Lopez Organization [employer] Address Unknown Phone Unavailable Care Team Providers Care Data Management Analyst Name Role Phone Mykel Lopez CP Unavailable Allergies No Known Allergies Problems Problem Type Condition Code Onset Dates Condition Status Problem Lumbar radiculopathy M54.16 Active Medications No Known Medications Results No Known Results Summary Purpose [employer] Submission
[2018-09-19] MEDS ORDERED: IPRATROPIUM BROMIDE 0.02% 2.5 ML NEB NEB STA (13:29)
[2018-09-19] MEDS ORDERED: VECURONIUM BROMIDE FOR INJ 20 MG VIAL IV STA (13:29)
[2018-09-19] MEDS ORDERED: MAGNESIUM SULF 1GRAM/DEXTROSE 100 ML IV STA (13:29)
[2018-09-19] MEDS ORDERED: AZITHROMYCIN 500MG/NS 250 ML 250 ML IV STA (13:29)
[2018-09-19] MEDS ORDERED: ALBUTEROL SULF 0.083% NEB SOLN 3 ML NEB NEB STA (13:29)
[2018-09-19] MEDS ORDERED: SUCCINYLCHOLINE CHLORIDE 20 MG/ML 10ML VIAL IV STA (13:29)
[2018-09-19] MEDS ORDERED: CEFTRIAXONE SOD 1 GM/NS 50 ML 50 ML IV STA (13:29)
[2018-09-19] MEDS ORDERED: FENTANYL CITRATE INJ 2,000 MCG in SODIUM CHLORIDE 0.9% 250ML 210 ML IV PRN (13:30)
[2018-09-19] MEDS ORDERED: ALBUTEROL/IPRATROPIUM 3 ML NEB ONE (13:36)
[2018-09-19] MEDS ORDERED: MIDAZOLAM HCL 25 MG in SODIUM CHLORIDE 0.9% 50ML 45 ML IV PRN (13:50)
--- NOTE | 2018-09-19 14:01 | Diagnostic Imaging Report ---
EXAMINATION: CHEST SINGLE (PORTABLE) INDICATION: ^S/P INTUBATION COMPARISON: CT chest 03/30/2012. Chest x-ray 07/01/2011. FINDINGS: AP view TUBES and LINES: Endotracheal tube tip is 6.5 cm above the gabe. Median sternotomy wires are intact. LUNGS: Lungs are well inflated. Increasing diffuse and show an alveolar opacities consistent with pulmonary edema. PLEURA: Trace bilateral pleural effusions. HEART AND MEDIASTINUM: Cardiac size is mildly enlarged. There are atherosclerotic calcifications within the aorta. BONES AND SOFT TISSUES: No acute osseous lesion. Soft tissues are unremarkable. UPPER ABDOMEN: No free air under the diaphragm. IMPRESSION: 1. Endotracheal tube tip is 6.5 cm above the gabe. 2. Diffuse pulmonary edema. Signed by: Dr. Grant Montiel M.D. on 09/19/2018 1:58 PM
[2018-09-19 14:18] LABS: BASOPHILS % 0.6 % (0.0-1.0); EOSINOPHILS # (AUTO) 0.1 (0.0-0.4); EOSINOPHILS % 1.6 % (0.0-6.0); HEMATOCRIT 32.5 % (34.2-44.1); HEMOGLOBIN 10.6 g/dL (12.0-16.0); LYMPHOCYTES # (AUTO) 1.1 (1.0-3.2); LYMPHOCYTES % 17.3 % (18.0-39.1); MEAN CORPUSCULAR HEMOGLOBIN 30.2 pg (28-32); MEAN CORPUSCULAR HGB CONC 32.6 g/dL (31-35); MEAN CORPUSCULAR VOLUME 92.6 fL (81-99); MONOCYTES # (AUTO) 0.6 (0.2-0.8); MONOCYTES % 10.3 % (4.4-11.3); NEUTROPHILS # (AUTO) 4.4 (2.1-6.9); NEUTROPHILS % 69.9 % (38.7-80.0); PLATELET COUNT 230 x10e3/uL (140-360); RED BLOOD COUNT 3.51 x10e6/uL (3.6-5.1); RED CELL DISTRIBUTION WIDTH 13.6 % (11.7-14.4)
[2018-09-19] MEDS ORDERED: MIDAZOLAM HCL 2 MG/2 ML VIAL IV STA (14:22)
[2018-09-19 14:39] LABS: ALANINE AMINOTRANSFERASE 11 IU/L (0-55); ALBUMIN 3.3 g/dL (3.5-5.0); ALBUMIN/GLOBULIN RATIO 1.2 (0.8-2.0); ALKALINE PHOSPHATASE 73 IU/L (40-150); ANION GAP 13.3 mmol/L (8-16); BLOOD UREA NITROGEN 6 mg/dL (7-26); BUN/CREATININE RATIO 8 (6-25); CARBON DIOXIDE 19 mmol/L (22-29); CHLORIDE 94 mmol/L (98-107); CREATINE KINASE 71 IU/L (29-168); CREATININE, SERUM 0.72 mg/dL (0.57-1.11); EST GLOMERULAR FILTRATION RATE > 60 ML/MIN (60-); GLUCOSE 151 mg/dL (74-118); LIPASE 6 U/L (8-78); POTASSIUM 4.3 mmol/L (3.5-5.1); SODIUM 122 mmol/L (136-145)
[2018-09-19 14:41] LABS: ABG HCO3 22 mmol/L (23-28); ABG PCO2 52 mmHg (41-51); ABG PH 7.23 (7.31-7.41); ABG PO2 387 mmHg (80-105)
[2018-09-19] MEDS ORDERED: ETOMIDATE 2 MG/ML 10 ML INJ IV STA (15:28)
--- NOTE | 2018-09-19 15:35 | Diagnostic Imaging Report ---
EXAM: Abdomen 1 Views INDICATION: ^s/p ngt placement COMPARISON: None FINDINGS: Median sternotomy wires. NG tube in stomach. Side-port is at the GE junction. Right upper quadrant cholecystectomy clips. Diffuse gaseous distention of the stomach and colon. No renal calculi. No abnormal soft tissue masses. Moderate degenerative changes in the lumbar spine and pelvis. IMPRESSION: NG tube in the stomach with side port at the GE junction. Recommend advancement. Signed by: Dr. Grant Montiel M.D. on 09/19/2018 3:32 PM
--- NOTE | 2018-09-19 16:31 | NUR ---
RIGHT AC INFILTRATED WHILE IN CT. IV DC'D, CATHETER INTACT, NO BLEEDING OR HEMATOMA NOTED.
--- NOTE | 2018-09-19 17:17 | NUR ---
REPORT CALLED TO WALTER BELL AT [facility]
[2018-09-19 17:35] VITALS: BP 133/79
--- NOTE | 2018-09-19 18:36 | Diagnostic Imaging Report ---
EXAM: CT Chest WITH contrast 09/19/2018 1:29 PM INDICATION: COPD. Pulmonary embolism. COMPARISON: None TECHNIQUE: Chest was scanned utilizing a multidetector helical scanner from the lung apex through the level of the adrenal glands without administration of IV contrast. Coronal and sagittal reformations were obtained. Routine protocol was performed. IV CONTRAST: 100 mL of Isovue 300 RADIATION DOSE: Total DLP: 391.34 mGy*cm Estimated effective dose: (DLP x 0.014 x size factor) mSv COMPLICATIONS: None FINDINGS: Examination slightly limited as the apices were not included. LINES/ TUBES: ET tube with distal tip in satisfactory position well above the gabe. Nasogastric tube with distal tip within the gastric body. LUNGS AND AIRWAYS: The pulmonary trunk is enlarged measuring 3.5 cm in diameter. Mild prominence of the right and left pulmonary arteries measuring 2.6 cm and 2.8 cm in diameter respectively. No filling defects to the resolved segmental level to suggest pulmonary embolism. Bilateral upper lobe emphysematous changes. Bilateral interstitial and alveolar pulmonary edema. Patchy consolidation in the dependent lower lobe bilaterally suggestive of atelectasis, however, cannot exclude consolidative pneumonia in the proper clinical setting. PLEURA: There are bilateral trace pleural effusions. HEART AND MEDIASTINUM: The thyroid gland is normal. Enlarged lymph nodes scattered throughout the mediastinum, the largest lateral to the aortic arch measuring 3.1 x 1.8 cm on image 28 series 2. Right hilar lymph node measures 2.6 x 1.9 cm on image 40. Left hilar lymph node measures 2.0 cm in short axis on image 44. Atherosclerotic calcifications of the thoracic aorta without aneurysmal dilatation. Coronary artery calcifications. Calcifications of the aortic and mitral valves are also noted. The heart is mildly enlarged. Reflux of contrast into the intrahepatic IVC and hepatic veins suggestive of right sided failure.. There is no pericardial effusion. UPPER ABDOMEN: Limited non-contrast views of the upper abdomen show status post cholecystectomy. The adrenal glands are normal. BONES: Loss of height of T6 suggestive of mild compression injury of uncertain age. Median sternotomy wires SOFT TISSUES: Unremarkable. IMPRESSION: 1. Bilateral interstitial and alveolar pulmonary edema. Right-sided failure. No pulmonary embolism to the segmental level. 2. Bilateral trace pleural effusions and bilateral lower lobe atelectasis versus consolidative pneumonia in the proper clinical setting. 3. Mediastinal and bilateral hilar lymphadenopathy may be reactive. Signed by: Dr. Tony Pool M.D. on 09/19/2018 6:33 PM
[2018-09-19] MEDS ORDERED: SODIUM CHLORIDE 0.9% 50ML 50 ML ONE (20:35)
[2018-09-19] MEDS ORDERED: IOPAMIDOL 370 MG/ML 200 ML INFUS..BTL INJ ONE (20:35)
[2018-09-19] MEDS ORDERED: NALOXONE HCL INJ 0.4 MG/ML AMP ONE (21:43)
[2018-09-19] MEDS ORDERED: ETOMIDATE 2 MG/ML 10 ML INJ IV ONE (21:49)
[2018-09-19] MEDS ORDERED: SUCCINYLCHOLINE CHLORIDE 20 MG/ML 10ML VIAL ONE (21:49)
[2018-09-19] MEDS ORDERED: MIDAZOLAM HCL 2 MG/2 ML VIAL ONE (21:49)
== END 2018-09-19 18:32 | disposition other institution (70) ==
LOC: ER 13:20
DX: R09.2 Respiratory arrest (principal); I27.9 Pulmonary heart disease, unspecified; F17.210 Nicotine dependence, cigarettes, uncomplicated
CPT/HCPCS: 31500; 36415; 51700; 71045; 71260; 74018; 80053; 82550; 82553; 82805; 83690; 83880; 84484; 85025; 94002; 94640; 99285; J0330; J0456; J0696; J2250 ×2; J3475; J7050; Q9967; J2310